=== PATIENT | female | born 1945 | race Caucasian/White ===

== ENCOUNTER → 2017-04-26 | Outpatient (CLI) | payer OTHER ==
[~2017-04-26] MED LIST: ACIDOPHILUS1 EAC4 PO; ALBUTEROL2.5 MG/31 INH; ALDACTONE25 MG PO; AMBIEN 10 MG TA10 MG PO; AMBIEN 5 MG TABL5 M1 PO; CAL-MAG COMPLE1 EACH PO; CALCIUM CITRAT250 MG PO; CARVEDILOL3.125 MG PO; CELLCEPT500 MG PO; CITRACAL-VIT D1 EAC2 PO; CLARITIN10 MG PO; COUMADIN 2 MG TA2 M1 PO; COUMADIN 2.5MG2.5 M1 PO; COUMADIN 4 MG TA4 M1 PO; COUMADIN7.5 MG PO; COZAAR 25 MG TA25 M2 PO; COZAAR 25 MG TA25 MG PO; DAYPRO600 MG PO; DOXYCYCLINE 10100 MG PO; DUONEB 2.5-0.5 M3 ML INH; ENOXAPARIN60 MG/0.1 SUBQ; EVISTA60 MG PO; FEOSOL325 M1 PO; HYDROCHLOROTHIA25 M2 PO; LEVAQUIN 500 M500 M1 PO; MEDROL4 MG PO; MEDROL8 MG PO; MUCINEX1200 MG PO; MUCINEX600 MG PO; NEXIUM40 MG PO; POTASSIUM20 PO; PULMICORT0.25 MG/3 INH; SYNTHROID50 MCG PO; TORSEMIDE20 MG PO; UNICOMPLEX M TA1 TA1 PO; VENTOLIN HFA 1818 GM INH; XANAX 0.5 MG0.5 M1 PO
--- NOTE | ~2017-04-26 | 2DMMODE ---
[facility] [place] [address] 2 D/M-MODE ECHOCARDIOGRAM Name: EUGENIO COOMBS Room #: REG [facility]#: [id number] Admission: 04/26/17 Attend Phys: Jovon Morales MD Discharge: Date of : 47 Date of Service: 04/26/17 1544 Report #: [id number] THIS REPORT FOR: //name// APPROVED REPORT Study performed: 04/26/2017 14:49:09 EXAM: Comprehensive 2D, Doppler, and color-flow Echocardiogram Patient Location: Echo lab Status: routine BSA: 1.61 HR: 110 bpm BP: 159/84 mmHg Rhythm: Tachycardia Other Information Study Quality: Adequate Indications Tachycardia 2D Dimensions RVDd: 27.68 mm LVEF(%): 59.63 (>50%) IVSd: 12.18 (7-11mm) LVOT Diam: 16.26 (18-24mm) LVDd: 35.46 mm PWd: 9.53 (7-11mm) Ascending Ao: 34.17 (22-36mm) LVDs: 24.49 (25-40mm) Aortic Root: 27.42 mm IVC: 16.00 mm Toure's LVEF: 59.63 % Volumes Left Atrial Volume (Systole) Single Plane 4CH: 31.17 mL Single Plane 2CH: 31.76 mL LA ESV Index: 22.00 mL/m2 Aortic Valve AoV Peak Rupesh.: 1.93 m/s AO Peak Gr.: 14.92 mmHg LVOT Max P.90 mmHg LVOT Max V: 1.57 m/s MICHAEL Vmax: 1.69 cm2 Mitral Valve E/A Ratio: 0.7 MV Decel. Time: 116.11 ms [facility] [place] [place] [address] 2 D/M-MODE ECHOCARDIOGRAM Name: EUGENIO COOMBS Room #: [facility]#: [id number] Admission: 04/26/17 Attend Phys: Jovon Morales MD Discharge: Date of : 47 Date of Service: 04/26/17 1544 Report #: [id number] E Max Rupesh.: 0.97 m/s MV A Rupesh.: 1.48 m/s MV PHT: 33.67 ms IVRT: 73.82 ms Pulmonary Valve PV Peak Rupesh.: 1.14 m/s PV Peak Gr.: 5.24 mmHg Tricuspid Valve TR Peak Rupesh.: 3.01 m/s RAP Estimate: 5.00 mmHg TR Peak Gr.: 36.24 mmHg PA Pressure: 41.00 mmHg Left Ventricle The left ventricle is normal size. There is normal left ventricular wall thickness. The left ventricular systolic function is normal. The left ventricular ejection fraction is within the normal range. LVEF is 60-65%. Transmitral Doppler flow pattern suggests impaired LV relaxation. Right Ventricle The right ventricle is normal size. The right ventricular systolic function is normal. Atria The left atrium size is normal. The right atrium size is normal. Aortic Valve The aortic valve is normal in structure. No aortic regurgitation is present. There is no aortic valvular stenosis. Mitral Valve Mitral valve leaflets are mildly thickened. There is no mitral valve regurgitation noted. No evidence of mitral valve stenosis. Tricuspid Valve The tricuspid valve is normal in structure. Mild to moderate tricuspid regurgitation. PAP is estimated at 41 mmHg. Pulmonic Valve Pulmonic valve is not well visualized. There is no pulmonic valvular regurgitation noted. Great Vessels The aortic root is normal in size. IVC is normal in size and collapses >50% with inspiration. [facility] [address] [place] [address] 2 D/M-MODE ECHOCARDIOGRAM Name: EUGENIO COOMBS [facility] [id number] Admission: 04/26/17 Attend Phys: Jovon Morales MD Discharge: Date of : 47 Date of Service: 04/26/17 1544 Report #: [id number] Pericardium There is no pericardial effusion. <Conclusion> The left ventricle is normal size. There is normal left ventricular wall thickness. The left ventricular systolic function is normal. Transmitral Doppler flow pattern suggests impaired LV relaxation. The right ventricle is normal size. The left atrium size is normal. The aortic valve is normal in structure. Mitral valve leaflets are mildly thickened. Mild to moderate tricuspid regurgitation. PAP is estimated at 41 mmHg. There is no pericardial effusion. <ELECTRONICALLY SIGNED> By: Jovon Morales MD 04/26/17 1544 1544 1544 Jovon Morales MD /INF
== END ==
LOC: CV 14:33
DX: I47.2 Ventricular tachycardia (principal); I07.1 Rheumatic tricuspid insufficiency

== ENCOUNTER → 2017-04-26 | Outpatient (CLI) | payer OTHER | LOC: RAD 17:19 | DX: R91.1 Solitary pulmonary nodule (principal); R59.0 Localized enlarged lymph nodes ==

== ENCOUNTER 2017-04-28 12:29 | Inpatient (IN) | payer OTHER ==
[~2017-04-28] VITALS: Ht 157.5 cm; Wt 58.3 kg
--- NOTE | ~2017-04-28 | P ---
[facility] [place] [address] PROCEDURE REPORT Name: EUGENIO COOMBS Room #: 360-P [facility] IN ..#: [id number] Admission: 04/28/17 Attend Phys: Raheel Ye MD Discharge: Date of : 47 Report #: [id number] THIS REPORT FOR: //name// CC: Raheel DELGADO DATE OF SERVICE: 04/28/2017 PROCEDURE: Fiberoptic bronchoscopy with bronchial washings and lavage of diffuse airways. INDICATION: Bronchiectasis with diffuse mucus plugging, uncertain diagnosis, failing outpatient management. ASA classification class 3. PROCEDURE NOTATION: After discussing risks and benefits of planned procedure with the patient, she desired to proceed. After obtaining informed consent, was brought to labor relations officer 3 where she was placed on continuous cardiopulmonary monitoring and supplemental oxygen. She was then given 4% lidocaine nebulized to anesthetize the upper respiratory tract. Once accomplished, she received conscious sedation, a total 4 mg of Versed and 25 mcg of fentanyl were titrated during the procedure to provide adequate sedation. Once accomplished, the bronchoscope was passed through an oral biteblock until vocal cords were visualized. Lidocaine 1% was instilled in the vocal cords to provide topical anesthesia. Vocal cords moved appropriately both before and after the procedure. Once accomplished, bronchoscope was passed in the trachea, 1% lidocaine was instilled in the tracheobronchial tree bilaterally to provide topical anesthesia. Once complete, airways were surveyed. FINDINGS: Mainstem, lobar, segmental and subsegmental bronchi were explored and appeared without any significant anatomic variation. There was extensive diffuse airway inflammation and thick white secretions. The white secretions were occluding completely some of the subsegmental airways. This was purged and aspirated as best I could with the bronchoscope and periodic 20 mL aliquots of saline infusions. The bronchoscope channel was occluded on multiple occasions, had to be removed and flushed to provide clearance of the channel to continue with airway clearance. One of these mucus plugs were sent in formalin for histopathology with some concern for aspergillosis. Bronchoscope was then reinserted on multiple occasions after being removed to continue with airway clearance. Significant lavage was obtained in the right lower lobe. The major airways were patent at the end of the procedure. The patient did require [facility] [address] [place] [address] PROCEDURE REPORT Name: EUGENIO COOMBS Room #: 360-P [facility] IN ..#: [id number] Admission: 04/28/17 Attend Phys: Raheel Ye MD Discharge: Date of : 47 Report #: [id number] increased FIO2 during the procedure, but otherwise tolerated the procedure. No noted other complications. <ELECTRONICALLY SIGNED> By: Yann Fang MD 05/03/17 1535 1704 0452 Yann Fang MD /nt
--- NOTE | ~2017-04-28 | S ---
[facility] [place] [address] SURGICAL PATH RPT PROCEDURE Name: EUGENIO CARVAJAL Room #: 360-P ADM IN M.R.#: [id number] Admission: 04/28/17 Date of : 47 Discharge: Report #: [id number] Path Case #: [id number] PATHOLOGY REPORT COLLECTION DATE: 04/29/2017 RECEIVED DATE: 04/29/2017 SUBMITTING PHYS: Raheel Ye M.D. OTHER PHYS: Dr. Tye Rojas SPECIMEN(S) RECEIVED: A.Peripheral smear * * * * * * * * * * * * FINAL DIAGNOSIS: Peripheral blood smear: - Moderate normocytic anemia, mild leukocytosis with neutrophilia and eosinophilia, and moderate thrombocytopenia (see comment). (CLW:barbara; 04/29/2017) COMMENT: Overall, the peripheral blood has moderate normocytic anemia, mild leukocytosis with neutrophilia and eosinophilia, and moderate thrombocytopenia. The etiology of the findings is unclear based entirely on slide review. Reactive and plasmacytoid lymphocytes are noted. There is a slight suggestion of red blood cell rouleaux. Possible causes of normocytic anemia include anemia of chronic disease, treated and/or compensated vitamin and mineral deficiency, acute blood loss, dilutional and primary bone marrow disorders. The leukocytosis is likely a reactive condition. Potential causes of neutrophilia include infections, drug reactions, smoking and primary bone marrow disorders. Potential causes of eosinophilia include drug reactions, allergic reactions, and infections. Causes of thrombocytopenia include immune and non-immune platelet destruction, drug and/or toxic exposures, dilutional and primary bone marrow disorders. Correlation with clinical history and additional laboratory data is recommended. (CLW:barbara; 04/29/2017) PATHOLOGIST: Ashley Mercado M.D. REPORT ELECTRONICALLY SIGNED BY: Ashley Mercado M.D. DATE/TIME: 04/29/2017 14:51 * * * * * * * * * * * * MICROSCOPIC DESCRIPTION: CBC Data (04/28/17): WBC 18,300 /uL, RBC 3.16, hemoglobin 9.8 g/dL, hematocrit 28.4%, MCV 89.8 fL, MCH 31.1 pg, MCHC 34.6 g/dL, [place] [address] SURGICAL PATH RPT PROCEDURE Name: EUGENIO CARVAJAL Room #: 360-P ADM IN [facility].#: [id number] Admission: 04/28/17 Date of : 47 Discharge: Report #: [id number] Path Case #: [id number] 14.9%, Platelet count 62,000 /uL. Manual white blood cell differential: segs 65%, bands, 2%, lymphs 6%, monos 8%, eos 18%, and atypical lymphos 1%. Peripheral Blood Smear: Cytomorphological examination of the Tripp's stained peripheral blood smear confirms the provided data. Red blood cells show moderate normocytic anemia with no significant anisopoikilocytosis. No schistocytes or microspherocytes are seen. There is a slight suggestion of possible rouleaux. White blood cells are mildly increased in number. They are predominantly segmented neutrophils and are without significant dyspoiesis or significant left shift. A moderate eosinophilia is identified. Lymphocytes are predominantly small, round, and mature appearing with condensed chromatin and scant cytoplasm with occasional reactive appearing lymphocytes and large granular lymphocytes. Occasional lymphocytes have plasmacytoid features. On scanning, no markedly atypical lymphoid cells are seen. Monocytes are mature. Platelets are moderately decreased in number and mainly normal in morphology with rare larger platelets noted. (CLW:barbara; 04/29/2017) GROSS PATHOLOGY: Received are three peripheral blood smears (one Tripp's stained and 2 unstained) all labeled Eugenio Carvajal. CLINICAL HISTORY: 72-year-old woman with anemia, thrombocytopenia and leukocytosis. Morphologic review of the peripheral blood smear is requested by the patient's physician. INITIAL CPT CODE(S): A; [place] Professional services performed by [facility] at [facility] [address], [place] [address] Technical services performed by [facility] at [address] [place] [address], [address], [place] [address]. [facility] [place] [address] PHONE: [phone] DIRECTOR: Randy Fitch M.D. * * * END OF REPORT * * *
--- NOTE | ~2017-04-28 | 2DMMODE ---
[facility] [place] [address] 2 D/M-MODE ECHOCARDIOGRAM Name: EUGENIO COOMBS Room #: 360-P ADM IN M.R.#: [id number] Admission: 04/28/17 Attend Phys: Raheel Ye MD Discharge: Date of : 47 Date of Service: 05/07/17 1201 Report #: [id number] THIS REPORT FOR: //name// APPROVED REPORT Study performed: 05/07/2017 10:42:38 EXAM: Comprehensive 2D, Doppler, and color-flow Echocardiogram Patient Location: Echo lab Room #: 360 Status: routine BSA: 1.62 HR: 81 bpm BP: 140/66 mmHg Other Information Study Quality: Good Indications Syncope Hypertension/HDD Tricuspid Valve TR Peak Rupesh.: 2.59 m/s TR Peak Gr.: 26.86 mmHg PA Pressure: 32.00 mmHg Left Ventricle The left ventricle is normal size. There is normal left ventricular wall thickness. The left ventricular systolic function is normal. The left ventricular ejection fraction is within the normal range. LVEF is 55-60%. Right Ventricle The right ventricle is normal size. The right ventricular systolic function is normal. Atria The left atrium size is normal. The right atrium size is normal. Aortic Valve The aortic valve is normal in structure. Trace aortic regurgitation. [facility] [address] [place] [address] 2 D/M-MODE ECHOCARDIOGRAM Name: EUGENIO COOMBS Room #: 360-P ADM IN M.R.#: [id number] Admission: 04/28/17 Attend Phys: Raheel Ye MD Discharge: Date of : 47 Date of Service: 05/07/17 1201 Report #: [id number] Mitral Valve The mitral valve is normal in structure. Trace to mild mitral regurgitation. Tricuspid Valve The tricuspid valve is normal in structure. There is mild to moderate tricuspid regurgitation. Estimated PAP 32 mmHg. There is mild pulmonary hypertension. Pulmonic Valve The pulmonary valve is normal in structure. Great Vessels The aortic root is normal in size. IVC is normal in size and collapses >50% with inspiration. Pericardium There is no pericardial effusion. <Conclusion> The left ventricle is normal size. There is normal left ventricular wall thickness. The left ventricular systolic function is normal. The right ventricle is normal size. The left atrium size is normal. Trace aortic regurgitation. Trace to mild mitral regurgitation. There is mild to moderate tricuspid regurgitation. Estimated PAP 32 mmHg. <ELECTRONICALLY SIGNED> By: Jovon Morales MD 05/07/17 120 120 1201 Jovon Morales MD /INF
--- NOTE | ~2017-04-28 | HC ---
[facility] [place] [address] CONSULTATION Name: EUGENIO COOMBS Room #: 360-P [facility] IN ..#: [id number] Admission: 04/28/17 Attend Phys: Raheel Ye MD Discharge: Date of : 47 Report #: [id number] THIS REPORT FOR: //name// CC: Raheel DELGADO DATE OF SERVICE: 04/28/2017 REASON FOR CONSULTATION: I was asked to evaluate concerning pneumonia and persistent cough. HISTORY OF PRESENT ILLNESS: The patient was a 72-year-old with over a 3-month history of cough and progressive shortness of breath. Onset was in January. Imaging studies in retrospect look like she had pneumonia at that time. She has been given several courses of antibiotics including azithromycin, Levaquin, doxycycline. She has been on corticosteroids, none of which have resolved her issues. She does have underlying hypertension, was on an NAHED inhibitor. This was discontinued as well without improvement. No prior history of pulmonary disease or pneumonia. Along with this, she has had no fever or night sweats or weight loss. She does have occasional chills. She has underlying fibromyalgia, which has been stable. She has hypothyroidism, on replacement. She had traveled to the [facility] this past summer. Family members who went with her, none of which became ill. She lives with her who has had no respiratory issues. She is a retired nurse as of 2011. No animal exposure, tuberculosis exposure, HIV risks other than the above. I do not have access to her previous workup other than a newer sedimentation rate was 132 and she had an eosinophilia. ALLERGIES: ERYTHROMYCIN, LEVAQUIN, HYDROCODONE and INTOLERANCE TO STEROID INHALERS. MEDICATIONS: As noted on her MAY, now being off both prednisone and antibiotics for about 3 weeks. PAST MEDICAL HISTORY: Anterior cervical fusion, hypertension, hypothyroidism, cataracts, fibromyalgia, irritable bowel, cholecystectomy, hysterectomy. FAMILY HISTORY: Noncontributory. SOCIAL HISTORY: Nonsmoker, no significant alcohol intake. REVIEW OF SYSTEMS: As noted above with no GI or complaints. No skin rashes or arthritis outside of her known fibromyalgia. PHYSICAL EXAMINATION: VITAL SIGNS: She is afebrile, hemodynamically stable. [facility] [address] [place] [address] CONSULTATION Name: EUGENIO COOMBS Room #: 360-P [facility] IN [facility].#: [id number] Admission: 04/28/17 Attend Phys: Raheel Ye MD Discharge: Date of : 47 Report #: [id number] GENERAL: She is alert and cooperative. She is on 5 L of oxygen per nasal cannula. HEENT: She had multiple petechiae to her eyes, conjunctiva and periorbital region. She underwent a bronchoscopy several hours previously. HEENT: Otherwise, unremarkable. During the examination, she had multiple episodes of nonproductive cough. NECK: Supple. No adenopathy. SKIN: Otherwise, unremarkable. LUNGS: Crackles heard in the posterior chest bilaterally. No consolidation and no rub. HEART: Regular, without murmur, gallop or rub. ABDOMEN: Soft, nontender, no hepatosplenomegaly or mass. EXTREMITIES: Unremarkable other than trace peripheral edema in the lower extremities. NEUROLOGIC: Nonfocal. LABORATORY STUDIES: Her troponin was 0.22. Electrocardiogram shows sinus tachycardia. TSH 4. CT scan of the chest showed a fairly extensive bronchiectasis and endobronchial plugging. She had a left upper lobe infiltrate and some increased mediastinal nodes. Hemoglobin 9.8, platelet count 62,000, white count 18.3, 65% segs, 2% bands, 6% lymphs, 8% monocytes, 18% eosinophils with a sodium of 128, potassium 3.4, bicarbonate 28, creatinine 1.8. IMPRESSION: A 72-year-old with a 3-month history of progressive cough and bilateral pulmonary infiltrates with bronchiectasis and mucus plugging with findings of anemia, thrombocytopenia, eosinophilia, hyponatremia and acute to just renal failure. It is noted that her sedimentation rate was 132 as an outpatient. I do not have access to her other outpatient workup. IMPRESSION: I am suspecting allergic lung disease versus vasculitis versus hypersensitivity versus malignancy. Primary infectious process seems less likely, although would be considered as a secondary process given her underlying bronchiectasis and mucus plugging. She has multiple allergies. Recommend further immune workup, infectious workup. Continue with broad-spectrum antibiotic therapy including vancomycin and Zosyn, pending bronchoscopy cultures. We will send cultures off for AFB, fungus, bacteria and have pathology assess for cytology looking for mucus casts and eosinophilia. I suspect the patient will require corticosteroids in this situation. It is possible she could have allergic bronchopulmonary aspergillosis, but we will await further studies. <ELECTRONICALLY SIGNED> By: Tye Kemp MD 04/29/17 1237 18 0304 Tye Kemp MD /nt
--- NOTE | ~2017-04-28 | HC ---
[facility] [place] [address] CONSULTATION Name: EUGENIO COOMBS Room #: 360-P ADM IN M.R.#: [id number] Admission: 04/28/17 Attend Phys: Raheel Ye MD Discharge: Date of : 47 Report #: [id number] THIS REPORT FOR: //name// CC: Raheel Hou MD REQUESTING PHYSICIAN: Raheel Ye MD REASON FOR CONSULTATION: Cytopenia. 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 It has always been slightly cheng. During the last several months, she is both coughing more and bringing up more phlegm because it does not clear. She has not really had any fever. She does have a slight headache from the coughing. No mouth sores. No new skin rash. No lymphadenopathy. She does have some chronic loose bowels from her irritable bowel. No blood in her urine or stool. No change in their function. She is not aware of any bleeding in them per se. She has not had any sweats, if I understand correctly. With regards to her blood counts, as far she knew, her counts were normal as of early March. Regarding recent antibiotic, she was recently on doxycycline before she came in. Her last colonoscopy was about 2015, they found out her diverticula. Her last EGD was the same time, she had a bit of evidence, I think, of reflux, but no Harkins's. She had lost about 8 pounds. PAST MEDICAL HISTORY: Notable for anterior cervical fusion in the past, hypertension, hypothyroidism. Note that on hypertension, she had been on Prinivil, they changed to losartan to see if this helps the cough. She also has cataracts in place, fibromyalgia, irritable bowel with some looser bowels, cholecystectomy, hysterectomy, oophorectomy because of ovarian cyst several years ago. 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 One of the times when she got sicker in the last several months, she was out picking pecNanoleaf in a recently mowed area. She is a nonsmoker, no alcohol, no street drugs. FAMILY HISTORY: Mother and father both had hypertension. Father lived to age 86. Mother also had osteoporosis, about age 90. One brother who is disgustingly healthy except he has a pacemaker. He used to be a runner. One daughter, a blood related daughter, who has IBS. There is another adopted child. [facility] [address] [place] [address] CONSULTATION Name: EUGENIO COOMBS Room #: 360-P [facility] IN M.R.#: [id number] Admission: 04/28/17 Attend Phys: Raheel Ye MD Discharge: Date of : 47 Report #: [id number] MEDICATIONS: Had been on and off prednisone and some antibiotics and also had been on various inhalers. CURRENT MEDICATIONS: Include acetylcysteine 800 mg respiratory therapy inhalation t.i.d., levothyroxine 75 mcg daily, Zosyn 2.25 q.6 hours, losartan 25 at bedtime, zolpidem 5 mg at bedtime, docusate 100 b.i.d., guaifenesin extended release 1200 b.i.d., vancomycin 1 gram daily, budesonide 0.5 mg respiratory therapy b.i.d., guaifenesin with codeine p.r.n., ipratropium and albuterol respiratory therapy q.4 hours, MiraLax 17 grams daily as needed, nitroglycerin p.r.n., Zofran p.r.n. LABORATORY DATA: Here included BUN of 20, creatinine of 1.7. Liver functions normal. Albumin low at 1.6, total protein 6.2. Iron 23, TIBC 136, percent saturation 17. Serum protein electrophoresis pending. White count 18.3 on admission, hemoglobin 9.8, MCV 89.8, platelets 62, today 50. Differential, 65% neutrophils, 2% bands, 6% lymphocytes, 8% monocytes, 18% eosinophils, 1% atypical lymphocytes. Absolute neutrophils 12,300. Peripheral smear review pending. TSH 4.047. Ferritin 555. Vitamin B12 is 6000. IgA pending. Respiratory viral panel pending. ANCA pending. UA showed squamous cells and bacteria. RADIOLOGIC STUDIES: Include a CT high resolution chest showing some mucus plugging and an indeterminate small noncalcified right lower lung nodule that will need followup. No significant interstitial lung disease, mild mediastinal adenopathy, spleen is normal size to my measurement, about 7.5 cm. Note, the patient also had a bronchoscopy, which showed some erythema and mucus plugging, which were sucked out. ASSESSMENT AND PLAN: 1. Thrombocytopenia. We will get outside lab from [facility] from the last 6 weeks. Also, await peripheral smear review. We will also check folic acid, immature platelet fraction, platelet antibody and serum soluble transferrin receptor assay. It could be related to doxycycline, which has now been stopped. No obvious bleeding. 2. Anemia. As above, we will check outside lab from [employer] [facility]. Iron panel somewhat indeterminate. We will check soluble transferrin receptor assay. We will await peripheral smear review. 3. Leukocytosis, most likely reactive. Note, high IgE would suggest reactive component. Await bronchoscopy to see if she might have aspergillosis. 4. Bronchiectasis and respiratory illness. Currently on Zosyn and vancomycin. We will defer to Pulmonary and Infectious Disease. 5. Hypertension, currently on losartan. 6. Hypothyroid. Defer replacement to others. 7. Irritable bowel. Defer replacement to others. 8. Fibromyalgia. No specific therapy at this point. [facility] [address] [place] [address] CONSULTATION Name: MALVIN,MARY Jaci Room #: 360-P [facility] IN ..#: [id number] Admission: 04/28/17 Attend Phys: Raheel Ye MD Discharge: Date of : 47 Report #: [id number] We will follow with you. <ELECTRONICALLY SIGNED> By: Bebeto Hairston MD 04/30/17 0742 0833 [id number] Bebeto Hairston MD /nt
--- NOTE | ~2017-04-28 | EKG ---
[address] [employer] [place] [address] ELECTROCARDIOGRAM REPORT Name: EUGENIO COOMBS Room #: 360-P ADM IN M.R.#: [id number] Admission: 04/28/17 Attend Phys: Raheel Ye MD Discharge: Date of : 47 Report #: [id number] THIS REPORT FOR: //name// [facility] ED Test Date: 2017-04-28 Test Time: 12:41:21 Pat Name: EUGENIO COOMBS Department: Room: 360 Gender: F [employer]let Company Member: CHRIS : 1945 Requested By: Torrey Easley Order Number: [id number] MD: Hoang Roach Measurements Intervals [place] Rate: 108 P: 72 RI: 145 QRS: 38 QRSD: 90 T: 70 QT: 331 QTc: 444 Interpretive Statements Sinus tachycardia Otherwise normal tracing No previous ECG available for comparison Electronically Signed On 04-28-2017 17:18:15 OPTOMECHANICAL ENGINEER by Hoang Roach [email or web address] <ELECTRONICALLY SIGNED> By: Hoang Roach MD, [facility] 04/28/17 1718 1241 1241 Hoang Roach MD, FACC /EPI
--- NOTE | ~2017-04-28 | HC ---
[facility] [place] [address] CONSULTATION Name: EUGENIO COOMBS Room #: 360-P [facility] IN .R.#: [id number] Admission: 04/28/17 Attend Phys: Raheel Ye MD Discharge: Date of : 47 Report #: [id number] THIS REPORT FOR: //name// CC: Raheel DELGADO Physician staff DATE OF SERVICE: 05/04/2017 NEPHROLOGY CONSULTATION ATTENDING PHYSICIAN: Dr. Ye. REASON FOR CONSULTATION: Systemic illness with renal involvement. HISTORY OF PRESENT ILLNESS: A 72-year-old patient, has been ill for greater than 3 months with primarily a respiratory illness, shortness of breath, cough, evidence of bronchiectasis, further complicated now by thrombocytopenia, renal insufficiency, heavy proteinuria and intermittent skin involvement. She has become progressively weak, hypoalbuminemic. Thrombocytopenia is responding to high doses of corticosteroids. PAST MEDICAL HISTORY: Otherwise, she has been reasonably stable. She has had a long history of hypertension treated with hydrochlorothiazide and lisinopril. In addition, she has had a history of fibromyalgia worked up intermittently without much success and generalized painful and somewhat moderately debilitating illness. PAST SURGICAL HISTORY: Includes previous hysterectomy, anterior cervical fusion and cholecystectomy. FAMILY HISTORY: No renal or connective tissue disease. SOCIAL HISTORY: No cigarettes or alcohol. REVIEW OF SYSTEMS: GENERAL: She has been feeling poorly. EYES: Her vision has been fine without problems there. ENT: Hearing okay, swallows okay. Denies mouth ulcers. ENDOCRINE: No diabetes or thyroid disease. RESPIRATORY: No shortness of breath, wheezing, pleuritic pain. CARDIAC: No chest pain, angina or palpitations. GASTROINTESTINAL: Appetite has been somewhat poor without diarrhea, bloody stool. GENITOURINARY: No dysuria or hematuria or renal stone disease. NEUROLOGIC: Generalized weakness without seizure, syncope or stroke. [facility] [address] [place] [address] CONSULTATION Name: EUGENIO COOMBS Room #: 360-P [facility] IN [facility]#: [id number] Admission: 04/28/17 Attend Phys: Raheel eY MD Discharge: Date of : 47 Report #: [id number] MUSCULOSKELETAL: No particular arthritis. PHYSICAL EXAMINATION: CARDIOVASCULAR: The patient is a somewhat chronically ill appearing patient. SKIN: Shows some petechiae and ecchymoses. SKELETAL: Well developed, well nourished, nonobese. HEENT: Extraocular movements are full. Vision is intact. Hearing is intact. Mucous membranes moist. Tongue, buccal mucosa benign. NECK: Supple, without lymphadenopathy. CHEST: Shows occasional rhonchi with slightly coarse breath sounds. HEART: Regular. ABDOMEN: Soft and nontender, without bruits, masses or organomegaly. EXTREMITIES: Show 2+ peripheral edema. NEUROLOGIC: Grossly intact. LABORATORY DATA: Hemoglobin is 9.1, platelets as low as 18,000, now up to 63. Sodium 135, potassium 3.7, chloride 102, bicarbonate 24, creatinine 1.6, BUN 41. Of note, she did have a positive platelet antibody, hemoglobin that is low at 9.1, very low serum complements C3 of 50, C4 less than 2, but CAMILLA was negative. The IgE level was elevated at 1229, p-ANCA, c-ANCA, atypical p-ANCA were all negative. GBM is pending. Urine chemistry showed greater than 6 g of proteinuria with a serum albumin of 1.9. ASSESSMENT AND PLAN: Acute nephritis. 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 This is in the setting of a systemic illness characterized by pulmonary findings with negative ANCA, GBM is pending and very low serum complement levels, immune thrombocytopenia on the background of long-term fibromyalgia. CAMILLA is negative. Renal biopsy would be helpful here. 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 We will be consulting with Rheumatology Service as well to come to a decision on treatment. 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 In any event as the platelets come up, I believe it will be safe to do a renal biopsy, keep her on the steroids and get to the bottom of the diagnosis here and treatment. <ELECTRONICALLY SIGNED> By: Dakota Norris MD 05/07/17 0823 1130 2316 Dakota Norris MD /nt
--- NOTE | ~2017-04-28 | CNG ---
[facility] [place] [address] CYTO-NONGYN REPORT PROCEDURE Name: EUGENIO CARVAJAL Room #: 360-P ADM IN M.R.#: [id number] Admission: 04/28/17 Date of : 47 Discharge: Report #: [id number] Path Case #: [id number] CYTOPATHOLOGY REPORT COLLECTION DATE: 04/28/2017 RECEIVED DATE: 04/29/2017 SUBMITTING PHYS: Dr. Yann Fang OTHER PHYS: Raheel Ye M.D. CLINICAL HISTORY: SOB; See also [id number] SPECIMEN(S) RECEIVED: A.Bronchoalveolar lavage, RLL * * * * * * * * * * * * FINAL DIAGNOSIS: A. RLL, Bronchoalveolar lavage: - No malignant cells identified. - Rare bronchial epithelial cells, alveolar macrophages, and squamous cells are present. - Acute and chronic inflammatory cells are present in a background of debris. PATHOLOGIST: Jaquelin Shannon M.D. REPORT ELECTRONICALLY SIGNED BY: Jaquelin Shannon M.D. DATE/TIME: 04/30/2017 13:26 * * * * * * * * * * * * GROSS PATHOLOGY: A. Bronchoalveolar lavage, RLL: The specimen is submitted unfixed, labeled "Eugenio Carvajal". Received by the Cytology Department is 20 mL of cloudy colorless fluid. One ThinPrep slide was prepared. (lg2.8.2017) STUDIO ARTIST(S): ZAK Waller(ASCP) INITIAL CPT CODE(S): A; 90767 Professional services performed by [facility] at [facility] [address] , [place] [address] Technical services performed by [facility] at [address] [place] [address], [address], [place] [address]. [facility] [address] [place] [address], [address] [facility] [address] [place] [address] CYTO-NONGYN REPORT PROCEDURE Name: EUGENIO CARVAJAL Room #: 360-P ADM IN .R.#: [id number] Admission: 04/28/17 Date of : 47 Discharge: Report #: [id number] Path Case #: [id number] SHANELL Lorenzo [address] PHONE: [phone] DIRECTOR: Randy Fitch M.D. * * * END OF REPORT * * *
--- NOTE | ~2017-04-28 | S ---
[facility] [place] [address] SURGICAL PATH RPT PROCEDURE Name: EUGENIO COOMBS Room #: 360-P ADM IN M.R.#: [id number] Admission: 04/28/17 Date of : 47 Discharge: Report #: [id number] Path Case #: [id number] PATHOLOGY REPORT COLLECTION DATE: 05/05/2017 RECEIVED DATE: 05/05/2017 SUBMITTING PHYS: Dr. Dakota Norris OTHER PHYS: Baudilio Sharma Dr. SPECIMEN(S) RECEIVED: A.Left renal biopsy * * * * * * * * * * * * FINAL DIAGNOSIS: Kidney, left kidney, needle core biopsy: - Membranous glomerulopathy, electron microscopy stage II. - Phospholipase A2 receptor stain is negative, see attached scanned image for details. - Acute tubular injury. Please see next page for scanned image of report submitted by [facility] consultant electronics pathologist, Solo Sanchez M.D. (IUV:amj; d/t: 05/07/2017) PATHOLOGIST: Jaquelin Shannon M.D. REPORT ELECTRONICALLY SIGNED BY: Jaquelin Shannon M.D. DATE/TIME: 05/07/2017 15:16 * * * * * * * * * * * * GROSS PATHOLOGY: Received are two containers each labeled with "Eugenio Coombs and left kidney biopsy". Container #1 (10% neutral buffered formalin) consist of a srinivasan soft needle core 1.0 cm in length and up to 0.1 cm in diameter. Container #2 (David's transport medium) consists of two srinivasan soft needle cores 1.2 cm and 1.1 cm in length and up to 0.1 cm in diameter. Both containers are sent for ancillary studies. (SWS; 05/05/2017) CLINICAL HISTORY: Glomerulonephritis INITIAL CPT CODE(S): A; 70059 Professional and Technical services performed by [employer], [address], [place] [address]. [address] [address] SURGICAL PATH RPT PROCEDURE Name: EUGENIO COOMBS Room #: 360-P ADM IN ..#: [id number] Admission: 04/28/17 Date of : 47 Discharge: Report #: [id number] Path Case #: [id number] [facility] [address] [place] [address] PHONE: [phone] DIRECTOR: Randy Fitch M.D. * * * END OF REPORT * * *
--- NOTE | ~2017-04-28 | EKG ---
[address] [place] [address] ELECTROCARDIOGRAM REPORT Name: EUGENIO COOMBS Room #: 360-P ADM IN M.R.#: [id number] Admission: 04/28/17 Attend Phys: Raheel Ye MD Discharge: Date of : 47 Report #: [id number] THIS REPORT FOR: //name// [facility] Test Date: 2017-04-29 Test Time: 09:51:22 Pat Name: EUGENIO COOMBS Department: Room: 360 P Gender: F Stator Plate Washer: Adi HARTMAN : 1945 Requested By: Jovon Morales Order Number: [id number] MD: Hoang Roach Measurements Intervals [place] Rate: 96 P: 58 ID: 137 QRS: 37 QRSD: 92 T: 57 QT: 368 QTc: 465 Interpretive Statements Sinus rhythm Normal tracing Compared to ECG 04/28/2017 12:41:21 Sinus tachycardia no longer present Electronically Signed On 04-29-2017 16:58:58 INDUSTRIAL HEALTH AND SAFETY PROFESSOR by Hoang Roach [email or web address] <ELECTRONICALLY SIGNED> By: Hoang Roach MD, [facility] 04/29/17 1658 D: 02950 0 Hoang Roach MD, [facility] /EPI
--- NOTE | ~2017-04-28 | EKG ---
[address] [address] ELECTROCARDIOGRAM REPORT Name: EUGENIO COOMBS Room #: 360-P ADM IN M.R.#: [id number] Admission: 04/28/17 Attend Phys: Raheel Ye MD Discharge: Date of : 47 Report #: [id number] THIS REPORT FOR: //name// [facility] [place] [facility] Test Date: 2017-05-06 Test Time: 09:27:27 Pat Name: EUGENIO COOMBS Department: Room: 360 P Gender: F Installation Technician: : 1945 Requested By: Raheel Ye Order Number: [id number] MD: Abner De La Garza Measurements Intervals [place] Rate: 66 P: 66 [place]: 126 QRS: 52 QRSD: 91 T: 77 QT: 404 QTc: 424 Interpretive Statements Sinus rhythm Compared to ECG 04/29/2017 09:51:22 No significant changes Electronically Signed On 05-06-2017 16:21:04 PARTY PLAN SALES UNIT ADVISOR by Abner De La Garza [email or web address] <ELECTRONICALLY SIGNED> By: Abner De La Garza MD 05/06/17 1621 0927 6 Abner De La Garza MD /[place]
--- NOTE | ~2017-04-28 | S ---
[facility] [place] [address] SURGICAL PATH RPT PROCEDURE Name: EUGENIO COOMBS Room #: 360-P ADM IN M.R.#: [id number] Admission: 04/28/17 Date of : 47 Discharge: Report #: [id number] Path Case #: [id number] PATHOLOGY REPORT COLLECTION DATE: 05/03/2017 RECEIVED DATE: 05/03/2017 SUBMITTING PHYS: Dr. Raghav Briseno OTHER PHYS: Baudilio Matute Dr., Dr., Dr., Dr. SPECIMEN(S) RECEIVED: A.Bone marrow, biopsy B.Bone marrow, clot and/or particle prep C.Bone marrow, aspirate smears D.Peripheral smear * * * * * * * * * * * * FINAL DIAGNOSIS: Bone marrow aspirate, biopsy, cell clot and peripheral blood: - Peripheral blood with moderate to severe normocytic anemia, mild to moderate leukocytosis/neutrophilia with mild left shift and severe thrombocytopenia. - Hypercellular bone marrow with trilineage hematopoiesis, mild dyspoiesis including mildly increased and focally dyspoietic megakaryocytes, eosinophilia and no evidence of lymphoma or acute leukemia. (See comment) COMMENT: Overall the bone marrow is hypercellular for the patient's age with trilineage hematopoiesis, mild dyspoiesis including mildly increased and focally dyspoietic megakaryocytes, eosinophilia and no evidence of lymphoma or acute leukemia. The overall findings may represent a reactive condition. The dyspoiesis is mild and while it could possibly represent a low grade myelodysplastic syndrome, it does not meet the morphologic criteria for myelodysplasia. Correlation with clinical history, additional laboratory data and cytogenetics is recommended. (CLW:db; 05/04/2017) PATHOLOGIST: Ashley Mercado M.D. REPORT ELECTRONICALLY SIGNED BY: Ashley Mercado M.D. DATE/TIME: 05/05/2017 13:[address] [address] SURGICAL PATH RPT PROCEDURE Name: EUGENIO COOMBS Room #: 360-[facility] IN [facility]#: [id number] Admission: 04/28/17 Date of : 47 Discharge: Report #: [id number] Path Case #: [id number] * * * * * * * * * * * * MICROSCOPIC DESCRIPTION: CBC Data (05/02/17): WBC 17,700 /uL, RBC 2.68, hemoglobin 8.4 g/dL, hematocrit 23.9%, MCV 89.0 fL, MCH 31.1 pg, MCHC 35.0 g/dL, RDW 14.9%, and platelet count 31,000 /uL. Automated white blood cell differential: segs 83.1%, lymphs 8.8%, monos 7.8%, eos 0.1%, and basos 0.2% with 1% metamyelocytes and 3% myelocytes. Peripheral Blood Smear: Cytomorphological examination of the Tripp's stained peripheral blood smear confirms the provided data. Red blood cells show moderate to severe normocytic anemia with mild anisocytosis. No significant poikilocytosis is identified. No schistocytes or microspherocytes are seen. White blood cells are mild to moderately increased in number. They are predominantly segmented neutrophils and are without significant dyspoiesis. Occasional hypersegmented neutrophils are noted. There is a mild left shift with rare myelocytes and metamyelocytes noted on scanning. No blasts or Mj rods are seen. Lymphocytes are predominantly small, round and mature appearing with condensed chromatin and scant cytoplasm with admixed large granular lymphocytes. On scanning, no markedly atypical lymphoid cells are seen. Monocytes are mature. Platelets are markedly decreased in number and mainly normal in morphology with rare larger platelets noted. Aspirate Smears: Cytomorphological examination of the Tripp's stained aspirate smears shows hypercellular spicules present. The overall cellularity is approximately 70%. The myeloid to erythroid ratio is 3:1. Full myeloid maturation is identified and is without significant dyspoiesis. An eosinophilia is noted. Erythroid maturation is mildly dyserythropoietic with irregular nuclear contours and basophilic stippling. In a 500 cell differential, there are less than 1% blasts (no Mj rods are seen), 69% more differentiated myeloids, 22% erythroid precursors, and 9% lymphocytes. Megakaryocytes are proportional in number and both normal and abnormal in morphology with variable sizes and nuclear abnormalities. No lymphoid aggregates or markedly atypical lymphoid cells are seen. Plasma cells are without atypia. Iron stain of the aspirate smear shows trace-1/4+ iron positivity with spicules present. No ringed sideroblasts are identified. Core Biopsy and Cell Clot: The decalcified bone marrow core biopsy is adequate. The bone marrow is hypercellular with an overall cellularity of approximately 60%. The myeloid to erythroid ratio is 2-3:1. Myeloid maturation is without significant dyspoiesis. Again, an eosinophilia is noted. Erythroid maturation is mildly dyserythropoietic. Megakaryocytes are normal to mildly increased in number and both normal and abnormal in morphology. No lymphoid aggregates or markedly atypical lymphoid cells are seen. Bony trabeculae and blood vessels are unremarkable. [facility] [address] [place] [address] SURGICAL PATH RPT PROCEDURE Name: EUGENIO COOMBS Room #: 360-P [facility] IN ..#: [id number] Admission: 04/28/17 Date of : 47 Discharge: Report #: [id number] Path Case #: [id number] The cell clot has spicules present that are similar in cellularity and differential morphology as previously described. Again, there is an eosinophilia. Iron stain of the cell clot (Block B1, B2, B3, B4 and B5) show 2/4+ iron positivity with spicules present. Flow Cytometry: Flow cytometric immunophenotypic analysis was performed at [facility]. The diagnosis is "no diagnostic immunophenotypic abnormalities detected." There are 5.3% lymphocytes. Of the lymphocytes, there are 69% T-cells with a CD4/CD8 ratio of 2.4 and no aberrant T-cell antigen expression and 17% polyclonal mature B-cells (kappa lambda ratio of 1.1). There are 0.3% CD34 positive cells (blasts) and precursor B cells are not detected. No immunophenotypic evidence of a lymphoproliferative disorder, acute leukemia, increase in blasts, or increase in plasma cells is identified. Please see separate flow cytometry report from [facility] ([id number]). Cytogenetics: Cytogenetic chromosomal analysis is pending at [facility] ([id number]). GROSS PATHOLOGY: A. Received in formalin labeled "Eugenio Coombs, BM biopsy," are 3 needle cores of srinivasan bone, ranging from 0.4 to 0.8 cm in length and 0.2 cm in diameter. The specimen is submitted entirely in cassette A1, following decalcification. B. Received in formalin labeled "Eugenio Coombs, BM aspirate," is blood coagulum, measuring 12.5 x 2.3 x 0.5 cm in aggregate dimensions. The specimen is submitted entirely in cassettes B1-B5. (SDY; 05/03/2017) CLINICAL HISTORY: Anemia, thrombocytopenia 72 year old woman with leukocytosis, anemia and thrombocytopenia. INITIAL CPT CODE(S): A; 45061, 53373 B; 61655, 80135, 55209, 59522, 41291, 68502 C; 58860, 71203 D; 51513 Professional services performed by [facility] at [address], [place] [address] Technical services performed by [facility] at [address] [place] [address], [place] [address]. [facility] [address] [address] SURGICAL PATH RPT PROCEDURE Name: EUGENIO COOMBS Room #: 360-P [facility] IN [facility].#: [id number] Admission: 04/28/17 Date of : 47 Discharge: Report #: [id number] Path Case #: [id number] [facility] [address] [address] PHONE: [phone] DIRECTOR: Randy Fitch M.D. * * * END OF REPORT * * *
--- NOTE | ~2017-04-28 | HC ---
[facility] [place] [address] CONSULTATION Name: EUGENIO COOMBS Room #: 360-P [facility] IN M.R.#: [id number] Admission: 04/28/17 Attend Phys: Raheel Ye MD Discharge: Date of : 47 Report #: [id number] THIS REPORT FOR: //name// CC: Raheel Rojas DO DATE OF SERVICE: 04/28/2017 REFERRING PROVIDER: Raheel eY MD REASON FOR CONSULTATION: Shortness of breath, bronchiectasis. CHIEF COMPLAINT: Dyspnea. HISTORY OF PRESENT ILLNESS: The patient is a pleasant 72-year-old woman known to me and seen on Wednesday in our office and follows up with Dr. Mao Madera of our group for several months trying to evaluate the cause of ongoing cough and shortness of breath, which started about 4 months ago. The patient had recently traveled to the [facility] prior to that. 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 The patient has had ongoing significant cough, unable to produce any sputum. Denies any fevers, chills or sweats and ongoing wheezing. The patient has been tried on systemic steroids, but developed significant carpopedal spasm associated with this. Also had similar problems with inhalers due to intolerance due to tachycardia, recently seen by Cardiology for further evaluation and subsequently brought to my attention on Wednesday. The patient had significant respiratory problems and nothing from a cardiac source. At that time, when I had seen her, she was on doxycycline and has previously been on what sounds like azithromycin and Levaquin without any improvement. Then had some improvement with nebulized bronchodilators, had also some improvement with the use of Nexium for reflux complaints. At that time, I had suggested a followup CT scan of the chest because of some findings of pulmonary nodules, AP window and mediastinal lymph nodes and eosinophilia that had been noted on prior laboratories. The patient also has a restrictive lung process. The patient was not improving, called our office today and obviously was doing very poorly and sent to the Emergency Room for admission. The patient was seen there. Subsequently underwent bronchoscopy this afternoon with extensive thick white secretions emanating from airway and including many of the lower respiratory tracts. Emergency Room laboratories had also shown eosinophilia, anemia and thrombocytopenia. The patient subsequently was admitted for further management. OUTPATIENT MEDICATIONS: Include azithromycin, hydrocodone, Levaquin, morphine, nonsteroidals, oxycodone and ceftriaxone. [address] [address] CONSULTATION Name: EUGENIO COOMBS Room #: 360-P [facility] IN [facility].#: [id number] Admission: 04/28/17 Attend Phys: Raheel Ye MD Discharge: Date of : 47 Report #: [id number] PAST MEDICAL HISTORY: 1. History of fibromyalgia. 2. History of traumatic brain injury. 3. Hypertension. 4. Hyperlipidemia. 5. Hypothyroidism. 6. Irritable bowel syndrome. PAST SURGICAL HISTORY: Includes cervical laminectomy, cholecystectomy and hysterectomy. SOCIAL HISTORY: The patient is a never smoker, no alcohol consumption. Lives with family. FAMILY HISTORY: Significant for cerebrovascular disease in both mother and father. REVIEW OF SYSTEMS: CONSTITUTIONAL: No fevers, chills or sweats; just some general malaise; diminished appetite. ENT: Some occasional nasal congestion. CARDIOVASCULAR: No chest pain, some palpitations noted, and lower extremity edema. GASTROINTESTINAL: Recent reflux, improved with Nexium. GENITOURINARY: No dysuria, no frequency. INTEGUMENT: Denies any new rash. MUSCULOSKELETAL: No joint pains or swelling. Rest 12-point review of systems normal or as described in HPI. PHYSICAL EXAMINATION: VITAL SIGNS: Afebrile, pulse 100-110, respiratory rate 20, blood pressure 120/71, oxygen saturation 97%. GENERAL: This is a pleasant, but debilitated elderly woman. ENT: Clear oropharynx. No thrush. NECK: Supple, no lymphadenopathy. LUNGS: Diminished with diffuse expiratory wheezes. CARDIOVASCULAR: Heart was tachycardic, but regular. No murmurs noted. ABDOMEN: Soft. Bowel sounds positive. EXTREMITIES: Only trace edema. INTEGUMENT: Without rash. LABORATORY DATA: Troponin 0.1. In the Emergency Department, white blood cell count 18,000; hemoglobin 9.8; hematocrit 28; platelet count 62 with 18% eosinophils. Sodium 128, potassium 3.4, chloride 94, bicarbonate 27, BUN 22, creatinine 1.8, glucose 117. Chest x-ray with diffuse bronchiectasis findings, [address] [address] CONSULTATION Name: EUGENIO COOMBS Room #: 360-P [facility] IN M.R.#: [id number] Admission: 04/28/17 Attend Phys: Raheel Ye MD Discharge: Date of : 47 Report #: [id number] minimal pleural effusions. IMPRESSION: 1. Bronchiectasis. 2. Diffuse airway secretions consistent with infectious process or a hypersensitivity or autoimmune process including allergic bronchopulmonary aspergillosis. 3. Anemia. 4. Thrombocytopenia. 5. History of lymphadenopathy. The patient also reports possible history of axillary adenopathy noted on mammography in the recent past. SUGGESTIONS: 1. Infectious Disease consultation regarding antibiotic choices given multiple allergies and failure of outpatient management. 2. Await bronchoscopy culture results. 3. The patient may need sampling of lymphadenopathy and would consider lymphoma in the differential diagnosis and other immune system dysfunctions. 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 6. Cardiology consultation. 7. Hematology consultation. 8. We will continue to follow. <ELECTRONICALLY SIGNED> By: Yann Fang MD 05/03/17 1535 03 0908 Yann Fang MD /nt
--- NOTE | ~2017-04-28 | S ---
[facility] [address] SURGICAL PATH RPT PROCEDURE Name: EUGENIO COOMBS Room #: 360-P ADM IN M.R.#: [id number] Admission: 04/28/17 Date of : 47 Discharge: Report #: [id number] Path Case #: [id number] PATHOLOGY REPORT COLLECTION DATE: 04/30/2017 RECEIVED DATE: 04/30/2017 SUBMITTING PHYS: Dr. Yann Fang OTHER PHYS: Baudilio Sharma Dr. SPECIMEN(S) RECEIVED: A.Mucus plug material from right lower lobe * * * * * * * * * * * * FINAL DIAGNOSIS: Tissue designated as, "mucus plug material from right lower lobe": - Consistent with a mucus plug. - No definite fungal elements identified (please see comment). COMMENT: A well-controlled [facility] fungal special stain is performed on block A1 and it shows no definite yeast or fungal elements. (IUV:mml; 05/03/2017) PATHOLOGIST: Jaquelin Shannon M.D. REPORT ELECTRONICALLY SIGNED BY: Jaquelin Shannon M.D. DATE/TIME: 05/03/2017 15:05 * * * * * * * * * * * * GROSS PATHOLOGY: The specimen is received in formalin labeled "Eugenio Coombs," and additionally labeled on the requisition as, "mucus plug material from right lower lobe". Received is a moderate amount of cloudy mucoid material measuring 2.0 x 1.3 x 0.3 cm in aggregate dimensions. The specimen is filtered and entirely submitted in cassette A1. A special stain for fungal organisms is ordered. (CAA; 04/30/2017) CLINICAL HISTORY: SOB, some concern for eosinophilic bronchitis or aspergillosis INITIAL CPT CODE(S): A; 67397, 24321 Professional services performed by [facility] at [facility] [address] [place] [address] SURGICAL PATH RPT PROCEDURE Name: EUGENIO COOMBS Room #: 360-P ADM IN [facility].#: [id number] Admission: 04/28/17 Date of : 47 Discharge: Report #: [id number] Path Case #: [id number] [address] [facility] , [place] [address] [facility] by [facility] at [address] [place] [address], [facility] [address], [place] [address]. [facility] [address] [place] [address] PHONE: [phone] DIRECTOR: Randy Fitch M.D. * * * END OF REPORT * * *
[2017-04-28 12:30] VITALS: BP 137/73
[2017-04-28 12:58] LABS: HEMATOCRIT 28.4 % (37.0-47.0); HEMOGLOBIN 9.8 gm/dL (12.0-15.0); MCH 31.1 pg (26.0-34.0); MCHC 34.6 g/dL (28.0-37.0); MCV 89.8 fL (80.0-100.0); RBC 3.16 mil/uL (4.20-5.00); RDW 14.9 % (10.5-14.5); WBC 18.3 thou/uL (4.0-11.0)
[2017-04-28 13:07] LABS: CALCIUM 8.8 mg/dL (8.5-10.1); CREATININE 1.8 mg/dL (0.6-1.0); POTASSIUM 3.4 mmol/L (3.5-5.1)
[2017-04-28 13:16] LABS: TROPONIN-I 0.1 ng/mL (<0.06)
[2017-04-28 13:18] VITALS: BP 137/73
[2017-04-28 13:47] LABS: ABSOLUTE NEUTROPHILS 12.3 thou/uL (1.4-8.2); ATYPICAL LYMPHS 1 %
[2017-04-28 13:48] LABS: ANISOCYTOSIS 1+
[2017-04-28 14:00] LABS: PLATELET COUNT 62 thou/uL (150-400)
[2017-04-28 15:30] LABS: TSH 4.047 uIU/mL (0.358-3.740)
[2017-04-28] MEDS ORDERED: VENTOLIN HFA 1818 GM INH (16:43)
[2017-04-28] MEDS ORDERED: PULMICORT0.25 MG/3 INH (16:43)
[2017-04-28] MEDS ORDERED: CAL-MAG COMPLE1 EACH PO (16:44)
[2017-04-28] MEDS ORDERED: CITRACAL-VIT D1 EAC2 PO (16:45)
[2017-04-28] MEDS ORDERED: DAYPRO600 MG PO (16:46)
[2017-04-28] MEDS ORDERED: NEXIUM40 MG PO (16:47)
[2017-04-28] MEDS ORDERED: MUCINEX1200 MG PO (16:47)
[2017-04-28] MEDS ORDERED: DOXYCYCLINE 10100 MG PO (16:47)
[2017-04-28] MEDS ORDERED: DUONEB 2.5-0.5 M3 ML INH ×2 (16:48→16:49)
[2017-04-28] MEDS ORDERED: HYDROCHLOROTHIA25 M2 PO (16:48)
[2017-04-28] MEDS ORDERED: SYNTHROID50 MCG PO (16:49)
[2017-04-28] MEDS ORDERED: CLARITIN10 MG PO (16:49)
[2017-04-28] MEDS ORDERED: COZAAR 25 MG TA25 M2 PO (16:50)
[2017-04-28] MEDS ORDERED: UNICOMPLEX M TA1 TA1 PO (16:50)
[2017-04-28] MEDS ORDERED: EVISTA60 MG PO (16:51)
[2017-04-28] MEDS ORDERED: AMBIEN 5 MG TABL5 M1 PO (16:51)
[2017-04-28 16:58] VITALS: BP 116/51
[2017-04-28 19:21] VITALS: BP 120/71
[2017-04-28 23:35] LABS: URINE BILIRUBIN NEGATIVE (Negative); URINE BLOOD 2+ (Negative); URINE CLARITY CLEAR; URINE COLOR YELLOW; URINE GLUCOSE-RANDOM* NEGATIVE (Negative); URINE KETONES NEGATIVE (Negative); URINE NITRITE-REFLEX NEGATIVE (Negative); URINE PROTEIN (DIPSTICK) 2+ (Negative); URINE UROBILINOGEN 0.2 E.U./dl (0.2-1.0)
[2017-04-28 23:43] LABS: URINE LEUKOCYTES-REFLEX TRACE (Negative)
[2017-04-29 00:03] LABS: HYALINE CASTS 0-3 Few /LPF (None Seen); SQUAMOUS 4-10 Moderate /LPF (0-3); URINE RBC 3-10 Few /HPF (0-2); URINE WBC-REFLEX 6-15 Few /HPF (0-5)
[2017-04-29 00:04] LABS: CRYSTALS None Seen /LPF (None Seen)
[2017-04-29 00:38] LABS: WBC 16.6 thou/uL (4.0-11.0)
[2017-04-29 00:40] LABS: HEMATOCRIT 26.5 % (37.0-47.0); HEMOGLOBIN 9.2 gm/dL (12.0-15.0); MCH 31.2 pg (26.0-34.0); MCHC 34.9 g/dL (28.0-37.0); MCV 89.5 fL (80.0-100.0); RBC 2.96 mil/uL (4.20-5.00); RDW 15.3 % (10.5-14.5)
[2017-04-29 00:55] LABS: CHOLESTEROL 111 mg/dL (<200); HDL CHOLESTEROL 44 mg/dL (>40); LDL CHOLESTEROL 53 mg/dL (<100); TC:HDL 2.5 Ratio (Not establshd); TRIGLYCERIDE 71 mg/dL (<150); VLDL 14 mg/dL (<40)
[2017-04-29 00:56] LABS: % SATURATION 17 % (20-39); IRON 23 ug/dL (50-170); TIBC 136 ug/dL (250-450)
[2017-04-29 00:57] LABS: ALBUMIN 1.6 g/dL (3.4-5.0); CALCIUM 8.4 mg/dL (8.5-10.1); CREATININE 1.7 mg/dL (0.6-1.0); POTASSIUM 3.6 mmol/L (3.5-5.1); TOTAL BILIRUBIN 0.7 mg/dL (<0.1-1.0); TOTAL PROTEIN 6.2 g/dL (6.4-8.2)
[2017-04-29 00:58] LABS: SERUM ASSESSMENT Clear
[2017-04-29 03:51] VITALS: BP 99/59
[2017-04-29 08:34] VITALS: BP 122/65
[2017-04-29 13:13] LABS: IgA 635 mg/dL (64-422); IgM 35 mg/dL (26-217)
[2017-04-29 13:24] VITALS: BP 135/72
[2017-04-29 19:07] LABS: IgG 1598 mg/dL (700-1600)
[2017-04-29 20:00] VITALS: BP 133/76
[2017-04-30 05:00] VITALS: BP 134/75
[2017-04-30 06:42] LABS: WBC 15.5 thou/uL (4.0-11.0)
[2017-04-30 06:44] LABS: ABSOLUTE NEUTROPHILS 13.5 thou/uL (1.4-8.2); BASOPHILS 0.7 % (0.0-2.0); EOSINOPHILS 0.6 % (0.0-3.0); HEMATOCRIT 27.6 % (37.0-47.0); HEMOGLOBIN 9.5 gm/dL (12.0-15.0); LYMPHOCYTES 7.2 % (24.0-44.0); MCHC 34.4 g/dL (28.0-37.0); MCV 90.2 fL (80.0-100.0); MONOCYTES 4.2 % (1.0-8.0); POLYS 87.3 % (36.0-66.0); RBC 3.06 mil/uL (4.20-5.00); RDW 15.1 % (10.5-14.5)
[2017-04-30 06:46] LABS: APTT 26.8 Seconds (24.5-32.8); PROTIME 10.7 Seconds (9.3-11.4)
[2017-04-30 06:50] LABS: CALCIUM 7.9 mg/dL (8.5-10.1); CREATININE 1.6 mg/dL (0.6-1.0); POTASSIUM 3.8 mmol/L (3.5-5.1)
[2017-04-30 07:20] VITALS: BP 126/78
[2017-04-30 08:39] LABS: PLATELET COUNT 18 thou/uL (150-400)
[2017-04-30 11:50] VITALS: BP 120/71
[2017-04-30 15:16] LABS: HEMATOCRIT 26.3 % (37.0-47.0); RDW 15.3 % (10.5-14.5)
[2017-04-30 15:18] LABS: MCH 30.9 pg (26.0-34.0); MCHC 34.4 g/dL (28.0-37.0); MCV 89.7 fL (80.0-100.0); RBC 2.93 mil/uL (4.20-5.00); WBC 21.7 thou/uL (4.0-11.0)
[2017-04-30 16:10] VITALS: BP 151/91
[2017-04-30 19:20] VITALS: BP 135/80
[2017-05-01 00:32] VITALS: BP 122/62; BP 138/77
[2017-05-01 04:38] LABS: HEMATOCRIT 22.5 % (37.0-47.0); HEMOGLOBIN 7.8 gm/dL (12.0-15.0); MCH 31.3 pg (26.0-34.0); MCHC 34.8 g/dL (28.0-37.0); RBC 2.5 mil/uL (4.20-5.00); RDW 15.3 % (10.5-14.5); WBC 20.3 thou/uL (4.0-11.0)
[2017-05-01 04:55] VITALS: BP 131/80
[2017-05-01 07:56] VITALS: BP 149/81
[2017-05-01 11:18] VITALS: BP 142/84
[2017-05-01 15:00] LABS: URINE CREATININE-RANDOM* 53.1 mg/dL; URINE PROTEIN-RANDOM* 332.3 mg/dL (<11.9)
[2017-05-01 15:49] VITALS: BP 135/72
[2017-05-01 16:10] LABS: HEMATOCRIT 24.8 % (37.0-47.0)
[2017-05-01 16:12] LABS: HEMOGLOBIN 8.7 gm/dL (12.0-15.0); MCH 31.2 pg (26.0-34.0); MCHC 34.9 g/dL (28.0-37.0); MCV 89.5 fL (80.0-100.0); PLATELET COUNT 45 thou/uL (150-400); RBC 2.78 mil/uL (4.20-5.00); RDW 15.5 % (10.5-14.5); WBC 21.6 thou/uL (4.0-11.0)
[2017-05-01 17:11] LABS: HISTOPLASMA MYCELIAL-ID Negative (Negative)
[2017-05-01 17:55] LABS: ABSOLUTE NEUTROPHILS 18.8 thou/uL (1.4-8.2); METAMYELOCYTES 2 %
[2017-05-01 17:56] LABS: ANISOCYTOSIS 1+; POLYCHROMASIA OCCASIONAL
[2017-05-01 19:50] VITALS: BP 149/86
[2017-05-02 03:50] VITALS: BP 123/76
[2017-05-02 05:36] LABS: ABSOLUTE NEUTROPHILS 14.7 thou/uL (1.4-8.2); BASOPHILS 0.2 % (0.0-2.0); PLATELET COUNT 31 thou/uL (150-400)
[2017-05-02 05:40] LABS: ABSOLUTE RETIC COUNT 0.0467 10^6/uL; EOSINOPHILS 0.1 % (0.0-3.0); HEMATOCRIT 23.9 % (37.0-47.0); HEMOGLOBIN 8.4 gm/dL (12.0-15.0); LYMPHOCYTES 8.8 % (24.0-44.0); MCH 31.1 pg (26.0-34.0); MONOCYTES 7.8 % (1.0-8.0); OBSERVED RETIC COUNT 1.74 % (0.6-2.6); POLYS 83.1 % (36.0-66.0); RBC 2.68 mil/uL (4.20-5.00); RDW 14.9 % (10.5-14.5); WBC 17.7 thou/uL (4.0-11.0)
[2017-05-02 05:51] LABS: ALBUMIN 1.8 g/dL (3.4-5.0); CALCIUM 7.8 mg/dL (8.5-10.1); CREATININE 1.5 mg/dL (0.6-1.0); POTASSIUM 3.9 mmol/L (3.5-5.1); TOTAL BILIRUBIN 0.8 mg/dL (<0.1-1.0); TOTAL PROTEIN 6.1 g/dL (6.4-8.2)
[2017-05-02 06:19] LABS: METAMYELOCYTES 1 %; MYELOCYTES 3 %; PLATELET ESTIMATE DECREASED
[2017-05-02 09:10] VITALS: BP 144/73
[2017-05-02 11:45] VITALS: BP 135/83
[2017-05-02 14:06] LABS: COMPLEMENT-C3 50 mg/dL (82-167); COMPLEMENT-C4 < 2 mg/dL (14-44)
[2017-05-02 16:34] VITALS: BP 135/66
[2017-05-02 20:00] VITALS: BP 175/80
[2017-05-03] VITALS (7 sets, daily range): BP systolic 137–158; BP diastolic 68–82
[2017-05-03 06:21] LABS: HEMATOCRIT 25.3 % (37.0-47.0); HEMOGLOBIN 8.8 gm/dL (12.0-15.0); MCH 31.1 pg (26.0-34.0); MCHC 34.8 g/dL (28.0-37.0); MCV 89.3 fL (80.0-100.0); RBC 2.83 mil/uL (4.20-5.00); RDW 15.3 % (10.5-14.5); WBC 19.9 thou/uL (4.0-11.0)
[2017-05-03 06:32] LABS: ALBUMIN 1.9 g/dL (3.4-5.0); CALCIUM 8.2 mg/dL (8.5-10.1); CREATININE 1.6 mg/dL (0.6-1.0); POTASSIUM 3.7 mmol/L (3.5-5.1); TOTAL BILIRUBIN 0.7 mg/dL (<0.1-1.0); TOTAL PROTEIN 6.4 g/dL (6.4-8.2)
[2017-05-03 09:06] LABS: ANA INTERPRETATION Negative (Negative); GLOBULIN TOTAL 3.7 g/dL (2.2-3.9); M-SPIKE Not Observed g/dL (Not Observed)
[2017-05-03 10:52] LABS: T-SPOT.TB Negative
[2017-05-03 15:08] LABS: KAPPA FREE LIGHT CHAINS 83.7 mg/L (3.3-19.4); KAPPA/LAMBDA RATIO 0.94 (0.26-1.65)
[2017-05-04 02:11] LABS: ADENOVIRUS Negative (Negative); INFLUENZA A Negative (Negative); INFLUENZA B Negative (Negative); METAPNEUMOVIRUS Negative (Negative); PARAINFLUENZA 1 Negative (Negative); PARAINFLUENZA 2 Negative (Negative); PARAINFLUENZA 3 Negative (Negative); RHINOVIRUS Negative (Negative); RSV A Negative (Negative); RSV B Negative (Negative)
[2017-05-04 04:00] VITALS: BP 158/82
[2017-05-04 08:30] VITALS: BP 158/62
[2017-05-04 09:00] LABS: HEMATOCRIT 26.3 % (37.0-47.0); HEMOGLOBIN 9.1 gm/dL (12.0-15.0); MCHC 34.7 g/dL (28.0-37.0); MCV 89.4 fL (80.0-100.0); PLATELET COUNT 63 thou/uL (150-400); RBC 2.94 mil/uL (4.20-5.00); RDW 15.4 % (10.5-14.5); WBC 15.9 thou/uL (4.0-11.0)
[2017-05-04 09:26] LABS: ABSOLUTE NEUTROPHILS 12.6 thou/uL (1.4-8.2); METAMYELOCYTES 2 %
[2017-05-04 09:27] LABS: LARGE PLATELETS FEW; POLYCHROMASIA 1+
[2017-05-04 11:31] VITALS: BP 100/49
[2017-05-04 11:49] VITALS: BP 155/70
[2017-05-04 16:00] VITALS: BP 158/68
[2017-05-04 18:10] LABS: ANA INTERPRETATION Negative (())
[2017-05-04 20:00] VITALS: BP 147/67
[2017-05-05] VITALS (10 sets, daily range): BP systolic 119–159; BP diastolic 56–91
[2017-05-05 06:36] LABS: HEMATOCRIT 24.8 % (37.0-47.0); HEMOGLOBIN 8.6 gm/dL (12.0-15.0); MCHC 34.6 g/dL (28.0-37.0); MCV 89.6 fL (80.0-100.0); PLATELET COUNT 80 thou/uL (150-400); RBC 2.77 mil/uL (4.20-5.00); RDW 15.3 % (10.5-14.5); WBC 19.5 thou/uL (4.0-11.0)
[2017-05-05 07:01] LABS: ALBUMIN 2.1 g/dL (3.4-5.0); CALCIUM 8.7 mg/dL (8.5-10.1); CREATININE 1.5 mg/dL (0.6-1.0); PHOSPHORUS 5.3 mg/dL (2.5-4.9); POTASSIUM 3.5 mmol/L (3.5-5.1)
[2017-05-05 07:57] LABS: ABSOLUTE NEUTROPHILS 15.2 thou/uL (1.4-8.2)
[2017-05-05 07:58] LABS: ANISOCYTOSIS 1+; METAMYELOCYTES 2 %; POLYCHROMASIA OCCASIONAL
[2017-05-05 08:46] LABS: APTT 22.6 Seconds (24.5-32.8); INR 1.1; PROTIME 11.5 Seconds (9.3-11.4)
[2017-05-06 05:30] VITALS: BP 123/64
[2017-05-06 08:50] VITALS: BP 112/51
[2017-05-06 10:03] LABS: HEMATOCRIT 23.9 % (37.0-47.0); HEMOGLOBIN 8.1 gm/dL (12.0-15.0); MCH 30.9 pg (26.0-34.0); MCHC 33.7 g/dL (28.0-37.0); MCV 91.5 fL (80.0-100.0); RBC 2.62 mil/uL (4.20-5.00); RDW 15.5 % (10.5-14.5); WBC 14.7 thou/uL (4.0-11.0)
[2017-05-06 10:15] LABS: CALCIUM 8.2 mg/dL (8.5-10.1); CREATININE 1.6 mg/dL (0.6-1.0); POTASSIUM 3.2 mmol/L (3.5-5.1)
[2017-05-06 10:23] LABS: ALBUMIN 1.9 g/dL (3.4-5.0); PHOSPHORUS 3.9 mg/dL (2.5-4.9)
[2017-05-06 10:24] LABS: TROPONIN-I 1.39 ng/mL (<0.06)
[2017-05-06 13:00] VITALS: BP 108/53
[2017-05-06 15:52] LABS: ABSOLUTE NEUTROPHILS 10.4 thou/uL (1.4-8.2); BASOPHILS 0.1 % (0.0-2.0); HEMATOCRIT 21.4 % (37.0-47.0); HEMOGLOBIN 7.4 gm/dL (12.0-15.0); LYMPHOCYTES 6.2 % (24.0-44.0); MCH 31.2 pg (26.0-34.0); MCHC 34.4 g/dL (28.0-37.0); MCV 90.7 fL (80.0-100.0); MONOCYTES 5.6 % (1.0-8.0); POLYS 88.1 % (36.0-66.0); RBC 2.36 mil/uL (4.20-5.00); RDW 15.2 % (10.5-14.5); WBC 11.8 thou/uL (4.0-11.0)
[2017-05-06 15:53] LABS: PLATELET COUNT 77 thou/uL (150-400)
[2017-05-06 17:22] VITALS: BP 154/62
[2017-05-06 19:55] VITALS: BP 118/55
[2017-05-06 23:03] VITALS: BP 131/62
[2017-05-07 04:25] VITALS: BP 140/66
[2017-05-07 05:42] LABS: ABSOLUTE NEUTROPHILS 11.4 thou/uL (1.4-8.2); BASOPHILS 0.1 % (0.0-2.0); EOSINOPHILS 0.1 % (0.0-3.0); HEMATOCRIT 21.6 % (37.0-47.0); HEMOGLOBIN 7.3 gm/dL (12.0-15.0); MCHC 33.7 g/dL (28.0-37.0); MCV 91.9 fL (80.0-100.0); MONOCYTES 8.8 % (1.0-8.0); PLATELET COUNT 68 thou/uL (150-400); RBC 2.35 mil/uL (4.20-5.00); RDW 15.7 % (10.5-14.5); WBC 14.5 thou/uL (4.0-11.0)
[2017-05-07 05:56] LABS: ALBUMIN 1.8 g/dL (3.4-5.0); CALCIUM 7.9 mg/dL (8.5-10.1); CREATININE 1.2 mg/dL (0.6-1.0); PHOSPHORUS 2.9 mg/dL (2.5-4.9)
[2017-05-07 05:58] LABS: POTASSIUM 4.2 mmol/L (3.5-5.1)
[2017-05-07 14:08] LABS: HEMATOCRIT 22.6 % (37.0-47.0); HEMOGLOBIN 7.7 gm/dL (12.0-15.0); MCH 31.2 pg (26.0-34.0); MCHC 34.1 g/dL (28.0-37.0); MCV 91.6 fL (80.0-100.0); RBC 2.47 mil/uL (4.20-5.00); RDW 15.4 % (10.5-14.5); WBC 16.5 thou/uL (4.0-11.0)
[2017-05-07 14:21] LABS: INR 1.1; PROTIME 11.5 Seconds (9.3-11.4)
[2017-05-07 16:59] VITALS: BP 145/65
[2017-05-07 19:40] VITALS: BP 141/65
[2017-05-08 00:06] LABS: HEPATITIS B SURFACE AG Negative (Negative)
[2017-05-08 01:07] LABS: ANTI-EBNA 81.7 U/mL (0.0-17.9); ANTI-VCA/IgM <36.0 U/mL (0.0-35.9); EBV EARLY ANTIGEN 11.8 U/mL (0.0-8.9)
[2017-05-08 04:25] VITALS: BP 127/71
[2017-05-08 07:18] VITALS: BP 125/68
[2017-05-08 11:34] VITALS: BP 128/60
[2017-05-08 15:26] VITALS: BP 114/53
[2017-05-08 19:47] VITALS: BP 131/46
[2017-05-09 03:43] LABS: ABSOLUTE NEUTROPHILS 12.9 thou/uL (1.4-8.2); BASOPHILS 0.1 % (0.0-2.0); EOSINOPHILS 0.1 % (0.0-3.0); HEMATOCRIT 22.7 % (37.0-47.0); HEMOGLOBIN 7.7 gm/dL (12.0-15.0); LYMPHOCYTES 8.6 % (24.0-44.0); MCH 31.2 pg (26.0-34.0); MCHC 33.7 g/dL (28.0-37.0); MCV 92.5 fL (80.0-100.0); MONOCYTES 8.8 % (1.0-8.0); PLATELET COUNT 90 thou/uL (150-400); POLYS 82.4 % (36.0-66.0); RBC 2.46 mil/uL (4.20-5.00); RDW 15.9 % (10.5-14.5); WBC 15.6 thou/uL (4.0-11.0)
[2017-05-09 06:21] VITALS: BP 134/52
[2017-05-09 07:52] VITALS: BP 134/64
[2017-05-09 09:00] LABS: CALCIUM 7.9 mg/dL (8.5-10.1); CREATININE 1.4 mg/dL (0.6-1.0); POTASSIUM 3.9 mmol/L (3.5-5.1)
[2017-05-09 11:22] VITALS: BP 134/63
[2017-05-09 16:41] VITALS: BP 108/52
[2017-05-09 20:00] VITALS: BP 132/67
[2017-05-10 04:21] VITALS: BP 107/56
[2017-05-10 04:44] LABS: HEMATOCRIT 20.9 % (37.0-47.0); HEMOGLOBIN 7.1 gm/dL (12.0-15.0); MCH 31.7 pg (26.0-34.0); MCHC 34.1 g/dL (28.0-37.0); MCV 93.2 fL (80.0-100.0); RBC 2.24 mil/uL (4.20-5.00); RDW 16.7 % (10.5-14.5); WBC 18.2 thou/uL (4.0-11.0)
[2017-05-10 04:56] LABS: ALBUMIN 1.7 g/dL (3.4-5.0); CALCIUM 8.1 mg/dL (8.5-10.1); CREATININE 1.4 mg/dL (0.6-1.0); PHOSPHORUS 3.9 mg/dL (2.5-4.9); POTASSIUM 3.8 mmol/L (3.5-5.1)
[2017-05-10 05:25] LABS: ABSOLUTE NEUTROPHILS 16.2 thou/uL (1.4-8.2); ANISOCYTOSIS 1+; LARGE PLATELETS RARE; METAMYELOCYTES 1 %; PLATELET COUNT 140 thou/uL (150-400)
[2017-05-10 08:04] VITALS: BP 126/59
[2017-05-10 11:21] VITALS: BP 103/50
[2017-05-10 12:29] VITALS: BP 115/51
[2017-05-10 13:18] LABS: HEMATOCRIT 23.6 % (37.0-47.0); HEMOGLOBIN 8.1 gm/dL (12.0-15.0); MCH 31.8 pg (26.0-34.0); MCHC 34.3 g/dL (28.0-37.0); MCV 92.7 fL (80.0-100.0); RBC 2.54 mil/uL (4.20-5.00); WBC 20.5 thou/uL (4.0-11.0)
[2017-05-10 14:09] LABS: SYPHILIS AB Negative (Negative)
[2017-05-10 15:37] VITALS: BP 115/59
[2017-05-10 19:50] VITALS: BP 133/57
[2017-05-10 22:21] LABS: URINE BILIRUBIN NEGATIVE (Negative); URINE BLOOD 3+ (Negative); URINE CLARITY CLEAR; URINE COLOR YELLOW; URINE GLUCOSE-RANDOM* NEGATIVE (Negative); URINE KETONES NEGATIVE (Negative); URINE LEUKOCYTES-REFLEX NEGATIVE (Negative); URINE NITRITE-REFLEX NEGATIVE (Negative); URINE PROTEIN (DIPSTICK) 2+ (Negative); URINE SPECIFIC GRAVITY 1.015 (1.005-1.035); URINE UROBILINOGEN 0.2 E.U./dl (0.2-1.0)
[2017-05-10 22:42] LABS: MUCUS 0-3 Light strn/LPF (None Seen); SQUAMOUS None Seen /LPF (0-3)
[2017-05-10 22:43] LABS: BACTERIA-REFLEX 1-9 Few /HPF (None Seen); CRYSTALS None Seen /LPF (None Seen); URINE RBC 3-10 Few /HPF (0-2); URINE WBC-REFLEX None Seen /HPF (0-5)
[2017-05-11 04:40] VITALS: BP 146/69
[2017-05-11 06:41] LABS: HEMATOCRIT 23.4 % (37.0-47.0); HEMOGLOBIN 7.9 gm/dL (12.0-15.0); MCH 31.6 pg (26.0-34.0); MCHC 33.9 g/dL (28.0-37.0); MCV 93.2 fL (80.0-100.0); PLATELET COUNT 137 thou/uL (150-400); RBC 2.51 mil/uL (4.20-5.00); RDW 16.9 % (10.5-14.5); WBC 23.7 thou/uL (4.0-11.0)
[2017-05-11 07:13] LABS: ANTI-DNA SCREEN <1 IU/mL (0-9); ANTI-RNP 0.3 AI (0.0-0.9)
[2017-05-11 07:35] LABS: ABSOLUTE NEUTROPHILS 19.4 thou/uL (1.4-8.2); MYELOCYTES 1 %
[2017-05-11 07:38] LABS: ANISOCYTOSIS 1+; POLYCHROMASIA OCCASIONAL
[2017-05-11 08:13] VITALS: BP 133/63
[2017-05-11 12:09] VITALS: BP 106/57
[2017-05-11 16:29] VITALS: BP 114/55
[2017-05-11 20:00] VITALS: BP 119/58
[2017-05-12 05:00] VITALS: BP 124/63
[2017-05-12 05:56] LABS: HEMATOCRIT 22.8 % (37.0-47.0); HEMOGLOBIN 7.8 gm/dL (12.0-15.0); MCH 32.4 pg (26.0-34.0); MCHC 34.3 g/dL (28.0-37.0); MCV 94.6 fL (80.0-100.0); PLATELET COUNT 148 thou/uL (150-400); RBC 2.41 mil/uL (4.20-5.00); RDW 17.8 % (10.5-14.5); WBC 27.5 thou/uL (4.0-11.0)
[2017-05-12 06:06] LABS: CALCIUM 8.3 mg/dL (8.5-10.1); CREATININE 1.4 mg/dL (0.6-1.0); MAGNESIUM 2.5 mg/dL (1.8-2.4); POTASSIUM 4.4 mmol/L (3.5-5.1)
[2017-05-12 06:42] LABS: ABSOLUTE NEUTROPHILS 24.5 thou/uL (1.4-8.2); ANISOCYTOSIS 1+; LARGE PLATELETS OCCASIONAL; POLYCHROMASIA 1+
[2017-05-12 08:26] VITALS: BP 133/61
[2017-05-12] MEDS ORDERED: AMBIEN 10 MG TA10 MG PO (12:36)
[2017-05-12] MEDS ORDERED: XANAX 0.5 MG0.5 M1 PO (12:37)
[2017-05-12] MEDS ORDERED: TORSEMIDE20 MG PO (12:38)
[2017-05-12] MEDS ORDERED: CELLCEPT500 MG PO (12:40)
[2017-05-12 13:40] VITALS: BP 133/61
[2017-05-12] MEDS ORDERED: FEOSOL325 M1 PO (14:14)
[2017-05-12] MEDS ORDERED: ALBUTEROL2.5 MG/31 INH (14:14)
== END 2017-05-12 14:45 | disposition home or self-care (01) | DRG 871 ==
LOC: ER 12:29 → EROBS 13:06 → 3W 13:06
PROVIDERS: Emergency Medicine; Hospitalist; Internal Medicine; Internal Medicine Hematology & Oncology; Internal Medicine Nephrology; Internal Medicine Pulmonary Disease; Nurse Practitioner; Specialist
DX: A41.9 Sepsis, unspecified organism (principal); E43 Unspecified severe protein-calorie malnutrition; N17.9 Acute kidney failure, unspecified; D61.818 Other pancytopenia; M31.8 Other specified necrotizing vasculopathies; N05.2 Unspecified nephritic syndrome with diffuse membranous glomerulonephritis; J47.9 Bronchiectasis, uncomplicated; Z88.8 Allergy status to other drugs, medicaments and biological substances; Z88.1 Allergy status to other antibiotic agents; I10 Essential (primary) hypertension; E03.9 Hypothyroidism, unspecified; Z98.42 Cataract extraction status, left eye; Z98.41 Cataract extraction status, right eye; Z90.49 Acquired absence of other specified parts of digestive tract; Z90.710 Acquired absence of both cervix and uterus; Z79.899 Other long term (current) drug therapy; E86.0 Dehydration; M79.7 Fibromyalgia; R91.1 Solitary pulmonary nodule; D69.6 Thrombocytopenia, unspecified; D64.9 Anemia, unspecified; K58.9 Irritable bowel syndrome, unspecified; G89.29 Other chronic pain; M54.9 Dorsalgia, unspecified; D75.9 Disease of blood and blood-forming organs, unspecified; R59.0 Localized enlarged lymph nodes; T17.990A Other foreign object in respiratory tract, part unspecified in causing asphyxiation, initial encounter; X58.XXXA Exposure to other specified factors, initial encounter; Y93.89 Activity, other specified; Y92.89 Other specified places as the place of occurrence of the external cause; Y99.8 Other external cause status; B37.9 Candidiasis, unspecified; Z68.23 Body mass index [BMI] 23.0-23.9, adult
CPT/HCPCS: 10879; 27001

== ENCOUNTER → 2017-06-09 | Outpatient (CLI) | payer OTHER | LOC: CAT 12:41 | DX: J47.9 Bronchiectasis, uncomplicated (principal) ==

== ENCOUNTER 2017-06-28 03:38 | Inpatient (IN) | payer OTHER ==
[~2017-06-28] VITALS: Ht 157.5 cm; Wt 54.9 kg
--- NOTE | ~2017-06-28 | EKG ---
[address] [address] ELECTROCARDIOGRAM REPORT Name: EUGENIO COOMBS Room #: 211-P ADM IN M.R.#: [id number] Admission: 06/28/17 Attend Phys: Darius Covarrubias MD Discharge: Date of : 47 Report #: [id number] THIS REPORT FOR: //name// [facility] Test Date: 2017-07-03 Test Time: 11:42:40 Pat Name: EUGENIO COOMBS Department: Room: 211 P Gender: F Supervisor Nuclear Medicine: BS : 1945 Requested By: Yosi Mathew Order Number: [id number] MD: Abner De La Garza Measurements Intervals [place] Rate: 91 P: 25 MO: 121 QRS: 18 QRSD: 86 T: 69 QT: 343 QTc: 423 Interpretive Statements Sinus rhythm Compared to ECG 05/06/2017 09:27:27 No significant changes Electronically Signed On 07-03-2017 12:21:55 CDT by Abner De La Garza [email or web address] <ELECTRONICALLY SIGNED> By: Abner De La Garza MD 07/03/17 1221 1142 114 Abner De La Garza MD /[place]
--- NOTE | ~2017-06-28 | HC ---
[facility] [place] [address] CONSULTATION Name: EUGENIO COOMBS Room #: 221-P [facility]..#: [id number] Admission: 06/28/17 Attend Phys: Darius Covarrubias MD Discharge: 07/07/17 Date of : 47 Report #: [id number] THIS REPORT FOR: //name// CC: ANAHY physician/PCP Darius Covarrubias DATE OF SERVICE: 06/28/2017 REASON FOR CONSULTATION: Questionable renal vein thrombosis. REASON FOR PRESENTATION: Worsening cough and shortness of breath. HISTORY OF PRESENT ILLNESS: This is a 72-year-old with extensive past medical history and repeated hospitalizations for repeated upper respiratory tract infection symptoms, cough, pneumonitis. 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 Her symptoms started a few days ago with associated fever and chills. She was hospitalized back in April for similar symptoms and was evaluated by Nephrology after being found to have thrombocytopenia, hypoalbuminemia, nephrotic range proteinuria, skin rash, heavy proteinuria, hematuria and thrombocytopenia. 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 I am being asked to evaluate because the initial CT that was done on the patient showed possible left renal vein thrombosis. Of note is that the patient had been nephrotic with severe hypoalbuminemia contributing to possible hypercoagulable condition. PAST MEDICAL HISTORY: 1. Seronegative lupus. 2. Hypertension. 3. Fibromyalgia. 4. Hypothyroidism. 5. Chronic pain syndrome. SOCIAL HISTORY: No known drug or alcohol abuse. She lives with her . REVIEW OF SYSTEMS: GENERAL: Significant for weakness and diffuse myalgias. CARDIOVASCULAR: Significant for shortness of breath. PULMONARY: As per the history of present illness. SKIN: No recent rash, but significant rash in the past. RHEUMATOLOGICAL: As per the history of present illness. PAST SURGICAL HISTORY: Cervical laminectomy, cholecystectomy, hysterectomy, status post kidney biopsy. FAMILY HISTORY: CVA. [facility] [address] [place] [address] CONSULTATION Name: EUGENIO COOMBS Room #: 221-P [facility]#: [id number] Admission: 06/28/17 Attend Phys: Darius Covarrubias MD Discharge: 07/07/17 Date of : 47 Report #: [id number] MEDICATIONS: Losartan, torsemide, CellCept, levothyroxine. PHYSICAL EXAMINATION: GENERAL: She is alert, oriented. VITAL SIGNS: Blood pressure is 122/76, temperature 36.6, pulse rate 89, respiratory rate 18. HEAD AND NECK: No jugular venous distention. CHEST: Decreased air entry bilaterally. CARDIOVASCULAR: Regular, with no rub. ABDOMEN: Soft, nontender. LOWER EXTREMITIES: +2 edema. IMAGIN. Renal ultrasound, reviewed. 2. CT chest, reviewed. ASSESSMENT, IMPRESSION AND PLAN: 1. Seronegative lupus. 2. 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 The patient is at very high risk of having renal vein thrombosis given her nephrotic range proteinuria. She did have some issues with bleeding around the kidney biopsy and we will have to be very careful with her anticoagulation. I will start with evaluating her urine protein to creatinine ratio. We will also send the appropriate hypercoagulable workup. Resume back her CellCept. 4. Resume losartan. 5. Defer the management of her pulmonary issues to the pulmonary team. 6. We will decide about anticoagulation once we review all the above workup. <ELECTRONICALLY SIGNED> By: Jennifer Blanton MD 07/07/17 1926 1850 0055 Jennifer Blanton MD /nt
--- NOTE | ~2017-06-28 | CNG ---
[facility] [place] [address] CYTO-NONGYN REPORT PROCEDURE Name: EUGENIO COOMBS Room #: 211-P ADM IN M.R.#: [id number] Admission: 06/28/17 Date of : 47 Discharge: Report #: [id number] Path Case #: [id number] CYTOPATHOLOGY REPORT COLLECTION DATE: 06/29/2017 RECEIVED DATE: 06/30/2017 SUBMITTING PHYS: Dr. Yann Fang OTHER PHYS: Dr. Darius Covarrubias CLINICAL HISTORY: Pneumonia, Tachycardia SPECIMEN(S) RECEIVED: A.Bronchoalveolar lavage, LLL * * * * * * * * * * * * FINAL DIAGNOSIS: A. Lung, LLL, Bronchoalveolar lavage: - No malignant cells identified. - Bronchial epithelial cells, alveolar macrophages, and squamous cells are present. - Acute and chronic inflammatory cells are present in a background of debris. PATHOLOGIST: Jaquelin Shannon M.D. REPORT ELECTRONICALLY SIGNED BY: Jaquelin Shannon M.D. DATE/TIME: 07/01/2017 13:11 * * * * * * * * * * * * GROSS PATHOLOGY: A. Bronchoalveolar lavage, LLL: The specimen is submitted unfixed, labeled "Eugenio Coombs". Received by the Cytology Department is 12 mL of cloudy colorless fluid. One ThinPrep slide was prepared. (mm 06.30.2017) TRANSPORTATION DEPARTMENT HEAD(S): ZAK Waller(ASCP) INITIAL CPT CODE(S): A; 67576 Professional services performed by [facility] at [facility] [address] , [place] [address] Technical services performed by [facility] at [address] [place] [address]., [address], [place], [place] [address]. [facility] [address] [place] [address], [address] [facility] [address] [place] [address] CYTO-NONGYN REPORT PROCEDURE Name: EUGENIO COOMBS Room #: 211-P ADM IN M.R.#: [id number] Admission: 06/28/17 Date of : 47 Discharge: Report #: [id number] Path Case #: [id number] [place] [address] PHONE: [phone] DIRECTOR: Randy Fitch M.D. * * * END OF REPORT * * *
--- NOTE | ~2017-06-28 | HC ---
[facility] [place] [address] CONSULTATION Name: EUGENIO COOMBS Room #: 211-P ADM IN M.R.#: [id number] Admission: 06/28/17 Attend Phys: Darius Covarrubias MD Discharge: Date of : 47 Report #: [id number] THIS REPORT FOR: //name// CC: ANAHY physician/PCP Darius Covarrubias TYPE OF REPORT: Infectious disease consultation. REASON FOR CONSULTATION: I was asked to evaluate concerning pneumonia in the setting of systemic lupus erythematosus. HISTORY OF PRESENT ILLNESS: The patient was a 72-year old with recent diagnosis of systemic lupus erythematosus. She was hospitalized in April with multisystem disease. She was found to have bronchiectasis with pulmonary infiltrates, mediastinal adenopathy, eosinophilia and cytopenias. She also had renal failure. Biopsy showed evidence of membranous glomerulonephritis. She was felt most consistent with seronegative lupus with hypocomplementemic vasculitis. She is placed on corticosteroids and later added mycophenolate. She has been home with reasonable improvement. Last week, developed acute respiratory compromise with cough and purulent sputum production. She had fever and chills. She was then hospitalized and found to have left-sided infiltrates. Two days ago underwent bronchoscopy. Culture so far growing gram-negative bacilli. Her fever has resolved. She has been on Zosyn. No pleuritic chest pain. No hemoptysis. No rash. Denies any GI or complaints. ALLERGIES: AZITHROMYCIN, LEVAQUIN, CEFTRIAXONE and HYDROCODONE. MEDICATIONS: As noted on her MAY, now including enoxaparin, epoetin, Nexium, Ambien, Coumadin, prednisolone, levothyroxine, losartan, raloxifene, Zosyn, mycophenolate, guaifenesin, albuterol and Tylenol. She was given one dose of fluconazole today. PAST MEDICAL HISTORY: Otherwise unchanged from her previous consultation and that of the above noted points. FAMILY HISTORY: Otherwise unchanged from her previous consultation and that of the above noted points. SOCIAL HISTORY: Otherwise unchanged from her previous consultation and that of the above noted points. REVIEW OF SYSTEMS: Denies any headache, rash, nausea, vomiting or diarrhea. No dysuria or frequency. She has been ambulatory but becomes dyspneic with much activity, on room air. PHYSICAL EXAMINATION: VITAL SIGNS: Afebrile and hemodynamically stable. [address] [address] CONSULTATION Name: EUGENIO COOMBS Room #: 211-P [facility] IN M.R.#: [id number] Admission: 06/28/17 Attend Phys: Darius Covarrubias MD Discharge: Date of : 46 Report #: [id number] GENERAL: Alert and cooperative, in no acute distress. SKIN: Unremarkable. LYMPHATIC: Unremarkable. HEENT: Unremarkable. LUNGS: Crackles heard mostly in the left posterior chest. No consolidation. HEART: Regular. ABDOMEN: Soft and nontender. No hepatosplenomegaly or mass appreciated. EXTREMITIES: Unremarkable. NEUROLOGICAL: Nonfocal. LABORATORY STUDIES: Sodium 135, potassium 3.6, bicarbonate 26, creatinine 1 and glucose 157. Liver function test normal. Albumin of 1.5. CPK 23. LDH 237. INR 1. Hemoglobin 7.6; WBC 12.2 and platelet count 343,000. No differential has been done. Complement levels normal. Urinalysis unremarkable. Blood cultures are negative to date. Bronchoscopy cultures showing gram-negative bacilli, fungus and AFB pending. RADIOLOGICAL DATA: Chest x-ray, increased left effusion with atelectasis and infiltrate, left base. On admission, CT scan of the chest showed left lingular atelectasis, infiltrate with left lower lobe bronchial plug. Mild atelectasis and infiltrate, posterior left lower lobe. Mediastinal adenopathy, increased central upper pole left renal vein thrombosis. 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 She has bronchiectasis and previous pneumonia. Now with suspected gram-negative pneumonia complicating factors. RECOMMENDATIONS: We will plan to continue her current IV antibiotic therapy since it appears she has started to improve. Unlikely atypical organisms considering we are now growing gram-negative bacilli and location of her infiltrate. We will still need to monitor her mediastinal adenopathy. <ELECTRONICALLY SIGNED> By: Tye Kemp MD 07/02/17 1023 05 0228 Tye Kemp MD /nt
--- NOTE | ~2017-06-28 | HC ---
[facility] [place] [address] CONSULTATION Name: EUGENIO COOMBS Room #: 211-P ADM IN M.R.#: [id number] Admission: 06/28/17 Attend Phys: Darius Covarrubias MD Discharge: Date of : 46 Report #: [id number] THIS REPORT FOR: //name// CC: FAM physician/PCP Darius Covarrubias PRIMARY CARE PHYSICIAN: Dr. Raghav Rojas. REFERRAL PHYSICIAN: Dr. Covarrubias. REASON FOR REFERRAL: Cough and pneumonia. HISTORY OF PRESENT ILLNESS: The patient is a 72-year-old white female who was transferred from [facility] Emergency Room for pneumonia. A pulmonary consultation was requested. The patient is known to Dr. Fang. Please refer to his recent pulmonary consultation dated 04/28/2017. In short summary, the patient was recently diagnosed with lupus, eosinophilia, bronchiectasis. She has had history of chronic cough. Recent renal biopsy showed membranous glomerulonephritis. She had been on CellCept and steroids. She has also been followed by Rheumatology. Since discharge from the hospital in April, she has been doing fairly well until over the last 3 days or so, she started developing increasing dyspnea, cough productive of yellowish sputum. She describes it as being similar symptoms when she was hospitalized in April. With worsening symptoms, tachycardic, she presented to [facility] Emergency Room. In the ER, the patient was found to be tachycardic with a heart rate around 130s to 140s. Chest x-ray said to have revealed left-sided infiltrates. There are no current chest x-ray available for my review at this time. Otherwise, denies any recent chest pain, hemoptysis, nausea, vomiting, diarrhea. PAST MEDICAL HISTORY: As mentioned above, recent diagnosis of lupus with membranous glomerulonephritis by biopsy, eosinophilia, bronchiectasis, fibromyalgia, past history of traumatic brain injury, hypertension, hypothyroidism, irritable bowel syndrome, hyperlipidemia. PAST SURGICAL HISTORY: Includes laminectomy, cholecystectomy, hysterectomy. ALLERGIES: ZITHROMAX, LEVAQUIN, ROCEPHIN, reactions are possible hives. HYDROCODONE, causes nausea, vomiting. HOME MEDICATIONS: List reviewed. This includes losartan, Ambien, calcium supplements, torsemide, Nexium, prednisone tapering by her laundry housekeeper, Evista, levothyroxine, CellCept, potassium supplements. [address] [address] CONSULTATION Name: EUGENIO COOMBS Room #: 211-P [facility] IN M.R.#: [id number] Admission: 06/28/17 Attend Phys: Darius Covarrubias MD Discharge: Date of : 47 Report #: [id number] FAMILY HISTORY: Notable for hypertension and longevity. SOCIAL HISTORY: She is a retired nurse. She is . She is a lifetime nonsmoker. Denies alcohol use. REVIEW OF SYSTEMS: As mentioned above, otherwise 10-point system review negative. PHYSICAL EXAMINATION: GENERAL: She is awake, alert, in mild distress. VITAL SIGNS: Temperature is 98 degrees Fahrenheit, pulse is 90, respiratory rate is 18, blood pressure is 120/76 mmHg, saturation 95%. HEENT: Normocephalic, atraumatic. NECK: Supple, without any lymphadenopathy or thyromegaly. CHEST: Breath sounds are fair. Few scattered crackles in the left base. No wheezes. CARDIOVASCULAR: Normal S1, S2. No murmurs or gallop. There is no JVD. There is no carotid bruit. Pulses are 2+/4+ bilaterally. ABDOMEN: Soft, nontender, no organomegaly or masses felt. GENITOURINARY: Deferred. RECTAL: Deferred. EXTREMITIES: There is no edema, cyanosis or clubbing. LABORATORY DATA: High resolution CT chest was performed. This shows left lingular atelectasis, with the left lower lobe mucus plugging, mild atelectasis and infiltrates seen in the posterior left lower lobe, mild increase in mediastinal adenopathy, central pole of the left renal vein thrombosis. Procalcitonin level 0.17. Sodium 133, potassium 3.7, chloride 26, BUN 22, creatinine 0.8. Liver functions are normal. WBC 16,900, hemoglobin 9.3, platelets are normal. Albumin 1.6. IMPRESSION: 1. Progressive productive cough in this 72-year-old white female. CT chest as mentioned above showing atelectasis. Recurrent mucus plugging is suspected. Possible pneumonia is also considered in this immunocompromised patient. 2. Bronchiectasis by history. 3. Recent diagnosis of lupus, on a tapering dose of prednisone as managed by Rheumatology. 4. Membranous glomerulonephritis. 5. Anemia, likely due to chronic disease. 6. Profound protein calorie malnutrition with an albumin of 1.6. 7. Hypertension. 8. Hypothyroidism. RECOMMENDATION: Agree with broad spectrum antibiotics. DVT and GI prophylaxis [facility] [address] [place] [address] CONSULTATION Name: EUGENIO COOMBS Room #: 211-P ADM IN M.R.#: [id number] Admission: 06/28/17 Attend Phys: Darius Covarrubias MD Discharge: Date of : 47 Report #: [id number] will be addressed. With the chest CT findings, the patient likely have recurrent by mucus plugging. The patient will likely need therapeutic bronchoscopy. Findings were discussed with the patient. Dr. Fang will see the patient in followup in the morning. Thank you for the consultation. <ELECTRONICALLY SIGNED> By: Lester Prasad MD 06/29/17 1333 [id number] [id number] Lester Prasad MD /nt
--- NOTE | ~2017-06-28 | H ---
[facility] [place] [address] HISTORY AND PHYSICAL Name: EUGENIO COOMBS Room #: 211-P ADM IN M.R.#: [id number] Admission: 06/28/17 Attend Phys: Darius Covarrubias MD Discharge: Date of : 47 Report #: [id number] THIS REPORT FOR: //name// CC: FAM physician/PCP Darius Covarrubias DATE OF SERVICE: 06/28/2017 ATTENDING PHYSICIAN: Dr. Covarrubias. PRIMARY CARE PHYSICIAN: Dr. Raghav Rojas. CHIEF COMPLAINT: Cough and pneumonia. HISTORY OF PRESENT ILLNESS: The patient is a 72-year-old female who was initially seen here at [facility] in 04/2017 for pneumonia. At that time, she had been having recurrent respiratory infections since January. She has had a cough for many months. She has been on multiple antibiotics as well as steroids, but she was not having any improvement, so she was sent to [place] from the pulmonary office. She did have significant lab changes including acute kidney injury as well as thrombocytopenia, anemia and eosinophilia. She had a CAT scan, which showed mucus plugging and a pulmonary nodule. Therefore, she underwent a bronchoscopy and was found to have significant bronchiectasis and multiple mucus plugs were removed. She was seen by Infectious Disease and treated with IV antibiotics. All of her fungal and blood and sputum cultures remained negative. She was then seen by Nephrology due to significant proteinuria and elevated creatinine. There was concern at one point for vasculitis. Eventually she underwent renal biopsy, which showed secondary membranous glomerulonephritis. Her CAMILLA was negative, but she ended up being seen by Rheumatology who felt like she had lupus. Her ESR and CRP were significantly elevated as well. She was started on CellCept and steroids. She ended up being discharged with plans to follow up with Pulmonary, Rheumatology and Cardiology. Her troponin was elevated at one point, but she was unable to have a catheterization because of thrombocytopenia. She ended up seeing Cardiology a few weeks after discharge and was going to be set up for a stress test, but that has not yet been done because she was feeling too poorly. She is denying any chest pain. She said initially when she was discharged from the hospital, she had been having some improvement in her cough. She reports that in the last 2-3 days, she has had increasing cough and sputum production. Her sputum has been yellow in color. She denies seeing any blood in her sputum. She has had significant increase in shortness of breath. She has not been using any oxygen at home, but has been doing breathing treatments. She does not have any fevers. After her coughing episode, she says her ribs do feel sore. These coughing episodes also have some associated palpitations. At home, her heart rate was up to the 130s, so she went to [facility]. On arrival, her heart rate was in the 140s and she was diagnosed with new left lower lobe pneumonia. [address] [address] HISTORY AND PHYSICAL Name: EUGENIO COOMBS Room #: 211-P [facility] IN .R.#: [id number] Admission: 06/28/17 Attend Phys: Darius Covarrubias MD Discharge: Date of : 47 Report #: [id number] Because of her extensive past medical history, she was sent to [facility] to see her specialist. She is currently resting comfortably in no acute distress. PAST MEDICAL HISTORY: Membranous glomerulonephritis, recent diagnosis of lupus, hypertension, hypothyroidism, fibromyalgia, pulmonary nodule, TBI, hyperlipidemia and irritable bowel syndrome. PAST SURGICAL HISTORY: D and C x 2, breast biopsy, anterior cervical bone removal, cataract, cholecystectomy, hysterectomy, recent renal biopsy and recent bone marrow biopsy. ALLERGIES: ZITHROMAX, LEVAQUIN AND ROCEPHIN, ALL POSSIBLY CAUSE HIVES. SHE ALSO STATES THAT HYDROCODONE CAUSES NAUSEA AND VOMITING. HOME MEDICATIONS: Losartan 25 mg p.o. daily, Ambien 10 mg at bedtime p.r.n., calcium citrate 500 mg p.o. daily, torsemide 20 mg p.o. daily, guaifenesin 1200 mg b.i.d., Nexium 40 mg p.o. daily, prednisolone ____ mg daily, Evista 60 mg at bedtime, ____, levothyroxine 25 mcg daily, CellCept 1000 mg b.i.d. and potassium 20 mEq p.o. daily. SOCIAL HISTORY: The patient is a retired RN, she is and lives at home with her spouse, she is a never smoker, denies any alcohol or drug use. FAMILY HISTORY: Both her parents had hypertension. Her father at the age of 86 and her mother at the age of 90, both from natural causes. REVIEW OF SYSTEMS: The patient states that she has had on and off butterfly rash on her face, but she is currently denying any rashes. With her proteinuria, she has been noted to have low albumin levels for which she has been on a high protein diet. All other 12-point review of systems was reviewed with the patient, otherwise negative unless stated in the HPI. PHYSICAL EXAMINATION: GENERAL: The patient is an alert female in no acute distress. VITAL SIGNS: Temperature is 37.4, heart rate 99, respirations 18, blood pressure 128/80 and oxygen 96% on room air. HEENT: PERRLA. Sclerae is nonicteric. Oral mucosa is pink and moist. NECK: Supple, no JVD noted. CARDIAC: Normal S1 and S2. No murmurs, rubs or gallops. RESPIRATORY: Breath sounds are clear in the upper lobes. She does have some crackles in the right lower lobe. She is diminished in the left lower lobe. Breathing is nonlabored. ABDOMEN: Soft, nontender and nondistended with positive bowel sounds. VASCULAR: 1+ bilateral lower extremity edema. Pedal pulses are 2+. NEUROLOGIC: The patient is alert and oriented x 3. Speech is clear. She is [facility] [address] [place] [address] HISTORY AND PHYSICAL Name: EUGENIO COOMBS Room #: 211-P [facility].#: [id number] Admission: 06/28/17 Attend Phys: Darius Covarrubias MD Discharge: Date of : 46 Report #: [id number] answering questions appropriately and following commands. No focal neuro deficits noted. SKIN: Intact. No rashes or lesions. LABORATORY DATA AND DIAGNOSTICS: WBC 17.3, hemoglobin 10.4 and platelets 329. Sodium 133, potassium 3.7, BUN is 27, creatinine 0.9 and glucose is 152. LFTs are within normal limits. Albumin is 1.8. CK is 28. Chest x-ray showed left lower lobe pneumonia. EKG shows sinus tachycardia. ASSESSMENT AND PLAN: 1. Recurrent pneumonia. The patient does have a recent admission for pneumonia. We will continue with Zosyn. Pulmonary is consulted. Continue breathing treatments and mucolytics. 2. Recent diagnosis of lupus. Rheumatology is consulted. We will continue with current dose of steroids as well as CellCept. 3. Recent acute kidney injury with renal biopsy showing membranous glomerulonephritis. Creatinine today is normal. She does have significant proteinuria with this. Repeat UA. Continue CellCept and steroids. 4. Hypertension. Continue losartan as at home. Blood pressure is stable. 5. Hypothyroidism. Continue Synthroid. 6. Protein calorie malnutrition due to proteinuria. Dietary is consulted. 7. Recent non-ST elevation myocardial infarction. The patient is going to be set up for an outpatient stress test. She is denying any chest pain and troponin is negative. 8. Deep venous thrombosis prophylaxis, place sequential compression devices. We will continue to follow the patient closely throughout the hospitalization and make changes based on clinical status. <ELECTRONICALLY SIGNED> By: IVAN Cheema 06/29/17 0942 [id number] 0933 IVAN Cheema /nt
--- NOTE | ~2017-06-28 | P ---
[facility] [place] [address] PROCEDURE REPORT Name: EUGENIO COOMBS Room #: 211-P [facility] IN M.R.#: [id number] Admission: 06/28/17 Attend Phys: Darius Covarrubias MD Discharge: Date of : 47 Report #: [id number] THIS REPORT FOR: //name// CC: ANAHY physician/PCP Darius Covarrubias DATE OF SERVICE: 06/29/2017 PROCEDURE: Fiberoptic bronchoscopy with bronchioalveolar lavage and microscopic brushings of the left lower lobe. INDICATION: Immunocompromised host with pneumonia, possible endobronchial obstruction. ASA classification class 2. PROCEDURE NOTATION: Discussed risks, benefits of planned procedure with the patient, she desired to proceed. After obtaining informed consent, she was brought to director of cath lab 3 where she was placed on continuous cardiopulmonary monitoring and supplemental oxygen. She was given 4% lidocaine nebulized to anesthetize the upper respiratory tract. Once accomplished, she received conscious sedation. A total of 3 mg Versed and 25 mcg of fentanyl were titrated during the procedure for adequate sedation. Once accomplished, bronchoscope was passed through an oral bite block until the vocal cords were visualized. Lidocaine 1% was instilled in the vocal cords to provide topical anesthesia. Bronchoscope was then passed in the trachea, 1% lidocaine was instilled in the tracheobronchial tree bilaterally for topical anesthesia. Once complete, airways were surveyed. FINDINGS: Mainstem, lobar, segmental and subsegmental bronchi were explored and appeared patent. There were significant purulent secretions coming predominantly from the superior segment of the left lower lobe, but throughout the left lower lobe. No significant thickened mucus plugging noted. Microscopic protected specimen brush was obtained in the superior segment of the left lower lobe and sent for quantitative cultures. Bronchioalveolar lavage was performed in this area at the end of procedure and sent for microbiologic and cytologic tests. The patient tolerated it well. No noted complications. IMPRESSION: Left lower lobe pneumonia in an immunocompromised host, status post bronchoscopy with the above collections. PLAN: Await micro and cytologic tests. By: [id number] Yann Fagn MD /nt
[~2017-06-28 03:38] MED LIST changes: -ACIDOPHILUS1 EAC4 PO; -ALDACTONE25 MG PO; -CALCIUM CITRAT250 MG PO; -CARVEDILOL3.125 MG PO; -COUMADIN 2 MG TA2 M1 PO; -COUMADIN 2.5MG2.5 M1 PO; -COUMADIN 4 MG TA4 M1 PO; -COUMADIN7.5 MG PO; -COZAAR 25 MG TA25 MG PO; -ENOXAPARIN60 MG/0.1 SUBQ; -LEVAQUIN 500 M500 M1 PO; -MEDROL4 MG PO; -MEDROL8 MG PO; -MUCINEX600 MG PO; -POTASSIUM20 PO
[2017-06-28 06:58] VITALS: BP 128/80
[2017-06-28] MEDS ORDERED: MEDROL8 MG PO (08:01)
[2017-06-28] MEDS ORDERED: POTASSIUM20 PO (08:02)
[2017-06-28] MEDS ORDERED: CALCIUM CITRAT250 MG PO (08:03)
[2017-06-28] MEDS ORDERED: COZAAR 25 MG TA25 MG PO (08:04)
[2017-06-28] MEDS ORDERED: SYNTHROID50 MCG PO (08:08)
[2017-06-28 10:17] LABS: HEMATOCRIT 27.2 % (37.0-47.0); HEMOGLOBIN 9.3 gm/dL (12.0-15.0); MCH 31.9 pg (26.0-34.0); MCHC 34.2 g/dL (28.0-37.0); MCV 93.3 fL (80.0-100.0); RBC 2.91 mil/uL (4.20-5.00); WBC 16.8 thou/uL (4.0-11.0)
[2017-06-28 10:25] LABS: ALBUMIN 1.6 g/dL (3.4-5.0); CALCIUM 8.2 mg/dL (8.5-10.1); CREATININE 0.8 mg/dL (0.6-1.0); MAGNESIUM 1.8 mg/dL (1.8-2.4); POTASSIUM 3.7 mmol/L (3.5-5.1); TOTAL BILIRUBIN 0.4 mg/dL (<0.1-1.0)
[2017-06-28 11:05] VITALS: BP 127/72
[2017-06-28 16:27] VITALS: BP 122/76
[2017-06-28 16:33] LABS: URINE BILIRUBIN NEGATIVE (Negative); URINE BLOOD 2+ (Negative); URINE CLARITY CLEAR; URINE COLOR YELLOW; URINE GLUCOSE-RANDOM* NEGATIVE (Negative); URINE KETONES NEGATIVE (Negative); URINE LEUKOCYTES-REFLEX NEGATIVE (Negative); URINE NITRITE-REFLEX NEGATIVE (Negative); URINE PROTEIN (DIPSTICK) 2+ (Negative); URINE SPECIFIC GRAVITY <= 1.005 (1.005-1.035); URINE UROBILINOGEN 0.2 E.U./dl (0.2-1.0)
[2017-06-28 16:39] LABS: PROT/CREAT RATIO 8.1; URINE CREATININE-RANDOM* 18.7 mg/dL; URINE CREATININE-RANDOM* 19.1 mg/dL; URINE PROTEIN-RANDOM* 152.5 mg/dL (<11.9); URINE PROTEIN-RANDOM* 153.9 mg/dL (<11.9)
[2017-06-28 16:46] LABS: SQUAMOUS 0-3 Few /LPF (0-3); URINE RBC 3-10 Few /HPF (0-2); URINE WBC-REFLEX 0-5 Rare /HPF (0-5)
[2017-06-28 16:47] LABS: BACTERIA-REFLEX None Seen /HPF (None Seen); CASTS None Seen /LPF (None Seen); CRYSTALS None Seen /LPF (None Seen)
[2017-06-28 19:07] VITALS: BP 122/65
[2017-06-29 03:27] VITALS: BP 128/69
[2017-06-29 05:27] LABS: ALBUMIN 1.5 g/dL (3.4-5.0); CALCIUM 8.2 mg/dL (8.5-10.1); CREATININE 0.7 mg/dL (0.6-1.0); POTASSIUM 3.4 mmol/L (3.5-5.1); TOTAL BILIRUBIN 0.4 mg/dL (<0.1-1.0); TOTAL PROTEIN 4.9 g/dL (6.4-8.2)
[2017-06-29 05:31] LABS: HEMATOCRIT 25.5 % (37.0-47.0); HEMOGLOBIN 8.7 gm/dL (12.0-15.0); MCHC 34.2 g/dL (28.0-37.0); MCV 93.7 fL (80.0-100.0); RBC 2.72 mil/uL (4.20-5.00); RDW 16.8 % (10.5-14.5); WBC 15.9 thou/uL (4.0-11.0)
[2017-06-29 08:47] VITALS: BP 105/55
[2017-06-29 13:12] LABS: COMPLEMENT-C3 126 mg/dL (82-167); COMPLEMENT-C4 21 mg/dL (14-44)
[2017-06-29 15:18] VITALS: BP 112/68
[2017-06-29 15:57] LABS: HEMATOCRIT 24.1 % (37.0-47.0); MCH 30.8 pg (26.0-34.0); MCHC 33.1 g/dL (28.0-37.0); RBC 2.59 mil/uL (4.20-5.00); RDW 16.9 % (10.5-14.5); WBC 15.5 thou/uL (4.0-11.0)
[2017-06-29 16:19] LABS: APTT 26.5 Seconds (24.5-32.8); PROTIME 10.1 Seconds (9.3-11.4)
[2017-06-29 19:01] VITALS: BP 126/55
[2017-06-30 03:38] VITALS: BP 113/59
[2017-06-30 05:31] LABS: HEMATOCRIT 22.4 % (37.0-47.0); HEMOGLOBIN 7.6 gm/dL (12.0-15.0); MCH 31.4 pg (26.0-34.0); MCHC 33.8 g/dL (28.0-37.0); MCV 93.1 fL (80.0-100.0); RBC 2.41 mil/uL (4.20-5.00); RDW 16.6 % (10.5-14.5); WBC 13.8 thou/uL (4.0-11.0)
[2017-06-30 05:34] LABS: PROTIME 10.5 Seconds (9.3-11.4)
[2017-06-30 05:41] LABS: CALCIUM 8.1 mg/dL (8.5-10.1); CREATININE 0.8 mg/dL (0.6-1.0); POTASSIUM 3.8 mmol/L (3.5-5.1)
[2017-06-30 07:10] VITALS: BP 127/66
[2017-06-30 12:03] VITALS: BP 128/71
[2017-06-30 16:00] VITALS: BP 107/56
[2017-06-30 19:50] VITALS: BP 109/67
[2017-07-01 04:26] LABS: CALCIUM 8.2 mg/dL (8.5-10.1); POTASSIUM 3.6 mmol/L (3.5-5.1)
[2017-07-01 04:29] LABS: % SATURATION 50 % (20-39); IRON 73 ug/dL (50-170); TIBC 145 ug/dL (250-450)
[2017-07-01 04:30] LABS: PROTIME 10.7 Seconds (9.3-11.4)
[2017-07-01 04:45] VITALS: BP 123/69
[2017-07-01 05:33] LABS: HEMATOCRIT 22.8 % (37.0-47.0); HEMOGLOBIN 7.6 gm/dL (12.0-15.0); MCH 30.9 pg (26.0-34.0); MCHC 33.3 g/dL (28.0-37.0); MCV 92.9 fL (80.0-100.0); RBC 2.46 mil/uL (4.20-5.00); RDW 16.3 % (10.5-14.5); WBC 12.2 thou/uL (4.0-11.0)
[2017-07-01 08:00] VITALS: BP 143/69
[2017-07-01 11:22] VITALS: BP 123/71
[2017-07-01 15:40] VITALS: BP 120/68
[2017-07-01 19:50] VITALS: BP 154/81
[2017-07-02 04:50] VITALS: BP 140/77
[2017-07-02 06:36] LABS: HEMATOCRIT 24.8 % (37.0-47.0); HEMOGLOBIN 8.4 gm/dL (12.0-15.0); MCH 31.4 pg (26.0-34.0); MCHC 34.1 g/dL (28.0-37.0); RBC 2.69 mil/uL (4.20-5.00); RDW 16.7 % (10.5-14.5); WBC 12.1 thou/uL (4.0-11.0)
[2017-07-02 06:48] LABS: INR 1.3; PROTIME 13.3 Seconds (9.3-11.4)
[2017-07-02 06:50] LABS: ALBUMIN 1.7 g/dL (3.4-5.0); CALCIUM 8.1 mg/dL (8.5-10.1); CREATININE 0.9 mg/dL (0.6-1.0); PHOSPHORUS 3.3 mg/dL (2.5-4.9); POTASSIUM 3.2 mmol/L (3.5-5.1)
[2017-07-02 07:17] VITALS: BP 136/75
[2017-07-02 11:32] VITALS: BP 165/68
[2017-07-02 15:43] VITALS: BP 104/65
[2017-07-02 19:43] VITALS: BP 133/80
[2017-07-03 04:48] LABS: INR 1.6; PROTIME 16.7 Seconds (9.3-11.4)
[2017-07-03 04:54] VITALS: BP 132/69
[2017-07-03 04:57] LABS: ALBUMIN 1.8 g/dL (3.4-5.0); CALCIUM 8.6 mg/dL (8.5-10.1); CREATININE 0.9 mg/dL (0.6-1.0); PHOSPHORUS 2.4 mg/dL (2.5-4.9)
[2017-07-03 07:50] VITALS: BP 135/78
[2017-07-03 11:40] VITALS: BP 141/73
[2017-07-03 15:40] VITALS: BP 147/78
[2017-07-03 18:36] VITALS: BP 147/78
[2017-07-03 19:18] VITALS: BP 147/75
[2017-07-04 05:20] VITALS: BP 134/75
[2017-07-04 06:24] LABS: CALCIUM 9.1 mg/dL (8.5-10.1); PHOSPHORUS 3.9 mg/dL (2.5-4.9); POTASSIUM 3.5 mmol/L (3.5-5.1)
[2017-07-04 07:20] VITALS: BP 127/67
[2017-07-04 08:22] LABS: PROTIME 19.5 Seconds (9.3-11.4)
[2017-07-04 11:50] VITALS: BP 136/74
[2017-07-04 15:20] VITALS: BP 140/79
[2017-07-04 19:50] VITALS: BP 150/89
[2017-07-05 04:50] VITALS: BP 150/81
[2017-07-05 05:18] LABS: HEMATOCRIT 28.7 % (37.0-47.0); HEMOGLOBIN 10.1 gm/dL (12.0-15.0); MCH 32.7 pg (26.0-34.0); MCHC 35.2 g/dL (28.0-37.0); RBC 3.08 mil/uL (4.20-5.00); RDW 17.1 % (10.5-14.5); WBC 14.3 thou/uL (4.0-11.0)
[2017-07-05 05:33] LABS: CALCIUM 9.3 mg/dL (8.5-10.1); PHOSPHORUS 3.7 mg/dL (2.5-4.9); POTASSIUM 4.1 mmol/L (3.5-5.1)
[2017-07-05 05:35] LABS: INR 1.9; PROTIME 19.4 Seconds (9.3-11.4)
[2017-07-05 07:20] VITALS: BP 148/84
[2017-07-05 11:45] VITALS: BP 118/63
[2017-07-05 15:45] VITALS: BP 148/71
[2017-07-05 19:45] VITALS: BP 130/73
[2017-07-06 06:56] VITALS: BP 127/66
[2017-07-06 07:46] LABS: HEMATOCRIT 30.3 % (37.0-47.0); HEMOGLOBIN 10.4 gm/dL (12.0-15.0); MCH 31.8 pg (26.0-34.0); MCHC 34.4 g/dL (28.0-37.0); MCV 92.3 fL (80.0-100.0); RBC 3.28 mil/uL (4.20-5.00); RDW 17.6 % (10.5-14.5); WBC 14.6 thou/uL (4.0-11.0)
[2017-07-06 07:59] LABS: INR 1.6; PROTIME 16.7 Seconds (9.3-11.4)
[2017-07-06 08:00] LABS: ALBUMIN 2.3 g/dL (3.4-5.0); CALCIUM 9.2 mg/dL (8.5-10.1); CREATININE 0.9 mg/dL (0.6-1.0); PHOSPHORUS 3.5 mg/dL (2.5-4.9); POTASSIUM 3.9 mmol/L (3.5-5.1)
[2017-07-06 20:00] VITALS: BP 134/74
[2017-07-07 07:25] VITALS: BP 130/81
[2017-07-07 07:38] LABS: INR 1.7; PROTIME 17.7 Seconds (9.3-11.4)
[2017-07-07] MEDS ORDERED: LEVAQUIN 500 M500 M1 PO (08:34)
[2017-07-07] MEDS ORDERED: COUMADIN 2.5MG2.5 M1 PO ×2 (08:34→08:43)
[2017-07-07] MEDS ORDERED: ALDACTONE25 MG PO (08:35)
[2017-07-07] MEDS ORDERED: ENOXAPARIN60 MG/0.1 SUBQ (08:39)
[2017-07-07 11:53] VITALS: BP 130/81
== END 2017-07-07 13:44 | disposition home or self-care (01) | DRG 166 ==
LOC: 2N 03:38 → SICU 07-05 20:15 → ENTRNSPT 07-07 13:18 → EDTRNSPTSTS 07-07 13:20 → SICU 07-07 13:44
PROVIDERS: Hospitalist; Internal Medicine; Internal Medicine Nephrology; Internal Medicine Rheumatology; Nurse Practitioner Acute Care
PROC: 0BDB8ZX Extraction of Left Lower Lobe Bronchus, Via Natural or Artificial Opening Endoscopic, Diagnostic (ICD-10-PCS; principal; 2017-06-29)
PROC: 0B9J8ZX Drainage of Left Lower Lung Lobe, Via Natural or Artificial Opening Endoscopic, Diagnostic (ICD-10-PCS; principal; 2017-06-29)
DX: J15.6 Pneumonia due to other Gram-negative bacteria (principal); E43 Unspecified severe protein-calorie malnutrition; I82.3 Embolism and thrombosis of renal vein; M31.8 Other specified necrotizing vasculopathies; N05.2 Unspecified nephritic syndrome with diffuse membranous glomerulonephritis; D63.8 Anemia in other chronic diseases classified elsewhere; M32.9 Systemic lupus erythematosus, unspecified; D75.9 Disease of blood and blood-forming organs, unspecified; D69.6 Thrombocytopenia, unspecified; I10 Essential (primary) hypertension; E03.9 Hypothyroidism, unspecified; E78.5 Hyperlipidemia, unspecified; G47.00 Insomnia, unspecified; M79.7 Fibromyalgia; K58.9 Irritable bowel syndrome, unspecified; Z90.49 Acquired absence of other specified parts of digestive tract; Z87.820 Personal history of traumatic brain injury; I25.2 Old myocardial infarction; Z68.22 Body mass index [BMI] 22.0-22.9, adult; Z90.710 Acquired absence of both cervix and uterus; Z88.1 Allergy status to other antibiotic agents; Z88.8 Allergy status to other drugs, medicaments and biological substances; Z82.49 Family history of ischemic heart disease and other diseases of the circulatory system
CPT/HCPCS: 10081; 15002; 27001

== ENCOUNTER 2017-07-13 20:20 | Inpatient (IN) | payer OTHER ==
--- NOTE | ~2017-07-13 | HC ---
[facility] [place] [address] CONSULTATION Name: EUGENIO COOMBS Room #: 227-P [facility] IN ..#: [id number] Admission: 07/13/17 Attend Phys: Kristofer Caldwell MD Discharge: Date of : 47 Report #: [id number] THIS REPORT FOR: //name// CC: ANAHY physician/PCP Kristofer Caldwell DATE OF SERVICE: 07/14/2017 HISTORY OF PRESENT ILLNESS: The patient is a 72-year-old white female with a prior history of lupus, on corticosteroids and CellCept, nephrotic syndrome, renal vein thrombus, on Coumadin, acute renal insufficiency with renal biopsy showing membranous glomerulonephritis and recent pseudomonas pneumonia. She had been discharged on 07/07/2017 after being treated for recurrent pneumonia. She was given oral Levaquin, underwent bronchoscopy with left lower lobe purulent secretions. She was noted to have protein-calorie malnutrition and has had a recent non-ST elevation myocardial infarction. She was discharged to home. She has had problems with a progressive decline and has not felt well. She ended up being readmitted with hyponatremia, sodium of 121 and worsening weakness. She has had worsening weakness, especially with [id number] and getting off surfaces. Once she is up, she is able to ambulate, but quickly fatigues. She has been admitted now for further evaluation. We are seeing her in rehabilitation medicine consultation. Of importance is a noted fall in the shower per the patient's history earlier today. PAST MEDICAL HISTORY: Includes prior anterior cervical bone removal without fusion, hypertension, hypothyroidism, hyperlipidemia, cataracts, fibromyalgia, carpal tunnel surgery bilaterally, cholecystectomy, hysterectomy, lupus 05/11/2017. She has been on corticosteroid since that time. Kidney biopsy with noted membranous glomerulonephritis, 05/11/2017. Renal vein thrombosis, bronchiectasis, insomnia, irritable bowel syndrome, GERD, thrombocytopenia, non-ST elevation [place]. ALLERGIES: MULTIPLE ALLERGIES ARE NOTED. MEDICATIONS: Please see the full medication listing. She is on methylprednisolone/Medrol p.o. and has been on it since April. SOCIAL HISTORY: No history of tobacco or alcohol abuse. Lives with her , house spouse. Premorbid community ambulator, was independent and ambulatory without gait aids. REVIEW OF SYSTEMS: Did not offer any current complaints of chest pain, shortness of breath or abdominal discomfort. Her main complaint is proximal weakness, upper and lower extremities. She notes she has some premorbid bilateral shoulder degenerative arthritis. [address] [address] CONSULTATION Name: EUGEINO COOMBS Room #: 227-P [facility] IN [facility]#: [id number] Admission: 07/13/17 Attend Phys: Kristofer Caldwell MD Discharge: Date of : 46 Report #: [id number] PHYSICAL EXAMINATION: GENERAL: She is a pleasant, thin 72-year-old white female, in no obvious distress. VITAL SIGNS: Last recorded temperature 97.8, pulse 102, respirations 16, blood pressure 149/74. The patient is alert. HEENT: Appeared to be benign. NEUROLOGIC: Cranial nerves are grossly intact. Facies are symmetric. She has functional range of motion of the upper extremities, but has some discomfort with some degenerative changes of her shoulders with abduction greater than 90 degrees. Proximal strength is probably a grade 4-, distally is more of a grade 4 in her lower extremities. Appears to have some proximal weakness, a grade 4- at her hips with knee extension, ankle dorsiflexion, knee flexion more of a grade 4- to 4. She was able to sit to stand with standby assistance and ambulated short distance, but she tends to fatigue quickly and she did have the fall in the bathroom that she noted earlier today. ASSESSMENT: A 72-year-old white female with the following problem list: 1. Steroid myopathy. 2. Proximal muscle weakness. 3. Hyponatremia. 4. Nephrotic syndrome. 5. Systemic lupus erythematosus. 6. Renal vein thrombosis. 7. 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 8. Protein-calorie malnutrition. 9. Hypertension. 10. Hypothyroidism. PLAN: We will ask physical therapy to reassess as she noted the recent fall. We will ask occupational therapy to evaluate as well. We are assessing the patient for a potential short acute in-hospital inpatient rehabilitation stay. At this point, we will follow along with you. Thank you for asking us to assist in this patient's care. By: [id number] Timmy Montelongo MD /nt
--- NOTE | ~2017-07-13 | HC ---
[facility] [place] [address] CONSULTATION Name: EUGENIO COOMBS Room #: 227-P [facility]..#: [id number] Admission: 07/13/17 Attend Phys: Kristofer Caldwell MD Discharge: 07/15/17 Date of : 46 Report #: [id number] THIS REPORT FOR: //name// CC: FAM physician/PCP Kristofer Caldwell DATE OF SERVICE: 07/14/2017 ATTENDING PHYSICIAN: Kristofer Caldwell M.D. REASON FOR CONSULTATION: Hyponatremia. HISTORY OF PRESENT ILLNESS: The patient is well known to our service with connective tissue disease, secondary membranous nephritis, treated with steroids and CellCept. Illness also included thrombocytopenia and hypocomplementemia both of which have resolved. The patient was hospitalized here with pneumonia, discharged last week, has been also taking diuretics for her nephrotic syndrome, had renal vein thrombosis, treated with Coumadin and the renal vein thrombosis also thought to be secondary to her nephrotic syndrome. She has been on home only a few days. Her serum sodium has dropped from 138 to 122 and her INR is elevated from 1.7 to 5.2 on 10 mg daily of Coumadin. She was admitted to the hospital. PAST MEDICAL HISTORY: Longstanding undifferentiated connective tissue disease, more recently presenting with the above constellation, most consistent with undifferentiated connective tissue disease versus seronegative lupus, on CellCept 1000 mg b.i.d. and tapering steroids and also managed by Dr. Hoang Corral. She has had heavy nephrotic syndrome with her membranous nephropathy, which is biopsy proven. She has renal vein thrombosis as well. SOCIAL HISTORY: No cigarettes or alcohol. PAST SURGICAL HISTORY: Also includes cervical laminectomy, cholecystectomy, hysterectomy, kidney biopsy. FAMILY HISTORY: Positive for CVA. REVIEW OF SYSTEMS: GENERAL: She was doing well the last couple of days, has had cramping and fatigue. SKIN: No skin rashes have been noted. EYES: His vision has been okay. ENT: Hearing okay, swallows okay. No mouth ulcers. ENDOCRINE: No diabetes. Does have some thyroid disease, on replacement. RESPIRATORY: Currently not short of breath at rest. No pleuritic pain. [facility] [address] [place] [address] CONSULTATION Name: EUGENIO COOMBS Room #: 227-P [facility] IN [facility].#: [id number] Admission: 07/13/17 Attend Phys: Kristofer Caldwell MD Discharge: 07/15/17 Date of : 46 Report #: [id number] CARDIAC: No chest pain or angina. She has had the swelling in her legs from the nephrotic syndrome, it has been better. GASTROINTESTINAL: Very poor appetite, not much diarrhea. GENITOURINARY: Good urinary stream without dysuria. NEUROLOGIC: No seizure, syncope or stroke. She does have generalized weakness. PHYSICAL EXAMINATION: GENERAL: Somewhat cushingoid appearing. The patient is in no acute distress, somewhat weak. SKIN: Unremarkable. SKELETAL: Well-developed, well nourished, not obese. HEENT: Extraocular movements are full. Vision intact. No scleral icterus. Hearing intact. NECK: Supple. CHEST: Shows scanty crackles at the left base. HEART: Regular. ABDOMEN: Soft and nontender. EXTREMITIES: No edema. Pulses intact. LABORATORY DATA: Urinalysis, specific gravity 1.010, 2+ protein. Sodium initially 122, up to 126, creatinine 0.7, BUN 23. Hemoglobin 10.2. INR 5.2. ASSESSMENT AND PLAN: 1. Hyponatremia, very poor solid intake, fixed urinary solute output with loop diuretic leading to imbalance of solids and fluid intake leading to hypoosmolar syndrome, now correcting easily as expected. I will stop her saline and give her a couple of salt tablets to try to get her output up a little bit higher. She should do fine. She was hospitalized for 8 days with a serum sodium that ran essentially between 134 and 138 consistently on her diuretics and normal intake and she should be able to attain this rather easily. 2. Elevated INR, possibly a little bit of fresh frozen to get her down some. I would not use vitamin K as that will certainly mess everything up in terms of trying to regulate her. We might consider factor Xa inhibitors, which including Xarelto or Eliquis may be adequate for her renal vein thrombosis until her nephrotic syndrome resolves. 3. Membranous nephropathy with nephrotic syndrome, on CellCept and steroids. 4. History of thrombocytopenia and hypocomplementemia, this is consistent with seronegative lupus or undifferentiated connective tissue disease. <ELECTRONICALLY SIGNED> By: Dakota Norris MD 07/19/17 1022 [id number] Dakota Norris MD /nt
[~2017-07-13 20:20] MED LIST changes: +ALDACTONE25 MG PO; +CALCIUM CITRAT250 MG PO; +COUMADIN 2.5MG2.5 M1 PO; +COZAAR 25 MG TA25 MG PO; +ENOXAPARIN60 MG/0.1 SUBQ; +LEVAQUIN 500 M500 M1 PO; +MEDROL8 MG PO; +POTASSIUM20 PO
[2017-07-13] MEDS ORDERED: MUCINEX600 MG PO (22:57)
[2017-07-13] MEDS ORDERED: MEDROL4 MG PO (22:59)
[2017-07-13] MEDS ORDERED: AMBIEN 5 MG TABL5 M1 PO (23:00)
[2017-07-14] VITALS (8 sets, daily range): BP systolic 112–149; BP diastolic 62–83
[2017-07-14 00:05] LABS: CALCIUM 8.4 mg/dL (8.5-10.1); CREATININE 0.8 mg/dL (0.6-1.0); POTASSIUM 4.1 mmol/L (3.5-5.1)
[2017-07-14] MEDS ORDERED: ALBUTEROL2.5 MG/31 INH (00:13)
[2017-07-14 06:12] LABS: HEMATOCRIT 30.1 % (37.0-47.0); HEMOGLOBIN 10.2 gm/dL (12.0-15.0); MCH 31.3 pg (26.0-34.0); RBC 3.27 mil/uL (4.20-5.00); RDW 18.1 % (10.5-14.5); WBC 14.5 thou/uL (4.0-11.0)
[2017-07-14 06:28] LABS: ALBUMIN 1.8 g/dL (3.4-5.0); CALCIUM 8.1 mg/dL (8.5-10.1); CREATININE 0.6 mg/dL (0.6-1.0); INR 5.2; TOTAL BILIRUBIN 0.3 mg/dL (<0.1-1.0); TOTAL PROTEIN 4.5 g/dL (6.4-8.2)
[2017-07-14 08:25] LABS: CALCIUM 8.1 mg/dL (8.5-10.1); CREATININE 0.7 mg/dL (0.6-1.0); POTASSIUM 3.9 mmol/L (3.5-5.1)
[2017-07-14 09:29] LABS: URINE BILIRUBIN NEGATIVE (Negative); URINE BLOOD 3+ (Negative); URINE CLARITY CLEAR; URINE COLOR YELLOW; URINE GLUCOSE-RANDOM* NEGATIVE (Negative); URINE KETONES NEGATIVE (Negative); URINE LEUKOCYTES NEGATIVE (Negative); URINE NITRITE NEGATIVE (Negative); URINE PROTEIN (DIPSTICK) 2+ (Negative); URINE UROBILINOGEN 0.2 E.U./dl (0.2-1.0)
[2017-07-14 09:32] LABS: URINE CREATININE-RANDOM* 24.2 mg/dL
[2017-07-14 09:38] LABS: BACTERIA 1-9 Few /HPF (None Seen); CASTS None Seen /LPF (None Seen); CRYSTALS None Seen /LPF (None Seen); SQUAMOUS 0-3 Few /LPF (0-3); URINE RBC 0-2 Rare /HPF (0-2); URINE WBC None Seen /HPF (0-5)
[2017-07-15 07:05] VITALS: BP 136/80
[2017-07-15 07:44] LABS: HEMATOCRIT 30.5 % (37.0-47.0); HEMOGLOBIN 10.6 gm/dL (12.0-15.0); MCHC 34.7 g/dL (28.0-37.0); MCV 92.2 fL (80.0-100.0); RBC 3.31 mil/uL (4.20-5.00); RDW 18.3 % (10.5-14.5); WBC 12.9 thou/uL (4.0-11.0)
[2017-07-15 07:56] LABS: ALBUMIN 2.1 g/dL (3.4-5.0); CALCIUM 8.3 mg/dL (8.5-10.1); CREATININE 0.6 mg/dL (0.6-1.0); PHOSPHORUS 2.8 mg/dL (2.5-4.9); POTASSIUM 4.2 mmol/L (3.5-5.1)
[2017-07-15 08:05] LABS: PROTIME 27.9 Seconds (9.3-11.4)
[2017-07-15 08:06] LABS: INR 2.8
[2017-07-15] MEDS ORDERED: DUONEB 2.5-0.5 M3 ML INH (13:03)
[2017-07-15] MEDS ORDERED: COUMADIN7.5 MG PO (13:05)
[2017-07-15] MEDS ORDERED: ACIDOPHILUS1 EAC4 PO (13:05)
== END 2017-07-15 15:47 | DRG 640 ==
LOC: 3W 20:20 → SICU 07-14 17:46 → ENTRNSPT 07-15 15:18 → EDTRNSPTSTS 07-15 15:19 → SICU 07-15 15:47
PROVIDERS: Hospitalist; Internal Medicine Nephrology; Nurse Practitioner Family
DX: E87.1 Hypo-osmolality and hyponatremia (principal); E43 Unspecified severe protein-calorie malnutrition; G72.0 Drug-induced myopathy; I82.3 Embolism and thrombosis of renal vein; N04.8 Nephrotic syndrome with other morphologic changes; I10 Essential (primary) hypertension; E03.9 Hypothyroidism, unspecified; E78.5 Hyperlipidemia, unspecified; M32.9 Systemic lupus erythematosus, unspecified; G47.00 Insomnia, unspecified; K58.9 Irritable bowel syndrome, unspecified; M81.0 Age-related osteoporosis without current pathological fracture; K21.9 Gastro-esophageal reflux disease without esophagitis; T38.0X5A Adverse effect of glucocorticoids and synthetic analogues, initial encounter; Z79.899 Other long term (current) drug therapy; Y92.89 Other specified places as the place of occurrence of the external cause; Z82.3 Family history of stroke; Z90.49 Acquired absence of other specified parts of digestive tract; Z90.710 Acquired absence of both cervix and uterus; Z98.49 Cataract extraction status, unspecified eye; I25.2 Old myocardial infarction
CPT/HCPCS: 10879; 15002

== ENCOUNTER 2017-07-15 12:55 | Inpatient (IN) | payer OTHER ==
[~2017-07-15] VITALS: Ht 157.5 cm; Wt 53.3 kg
--- NOTE | ~2017-07-15 | H ---
[facility] [place] [address] HISTORY AND PHYSICAL Name: EUGENIO COOMBS Room #: 503-P ADM IN M.R.#: [id number] Admission: 07/15/17 Attend Phys: Timmy Montelongo MD Discharge: Date of : 46 Report #: [id number] THIS REPORT FOR: //name// CC: Timmy Montelongo [facility] physician/PCP DATE OF SERVICE: 07/15/2017 HISTORY OF PRESENT ILLNESS: This is a 72-year-old female admitted to [facility] on 07/13/2017 with complaints of progressive decline and generalized weakness. She was found to have significant hyponatremia with sodium of 121. She has prior history of lupus, on corticosteroids and CellCept; nephrotic syndrome; renal vein thrombosis, on chronic Coumadin anticoagulation; acute renal insufficiency with renal biopsy showing membranous glomerulonephritis and a recent Pseudomonas pneumonia for which she was discharged from [facility] on 07/07/2017 for. She was seen in consultation by Nephrology. She was initially given IV fluids and changed to salt tablets. On admission, her INR was also elevated at 5.2. Her INR today has improved to 2.8. Her sodium has improved to 131. She is stabilized, but remained very weak and was transferred to inpatient rehab for further therapies. Today, resident seen in her room. She is doing well with no specific complaints. She has general muscle aches and pains from her lupus and arthritis. Appetite is poor, but improving. Her cough is improving. She does have occasional coughing spell where she then has generalized chest discomfort. Denies nausea, constipation or bladder complaints. She reports having recent significant edema that has improved. PAST MEDICAL HISTORY: Prior anterior cervical bone removal without fusion, hypertension, hypothyroidism, hyperlipidemia, cataracts, fibromyalgia, carpal tunnel surgery bilaterally, cholecystectomy, hysterectomy, lupus diagnosis on 05/11/2017, on corticosteroids since that time. Kidney biopsy with noted membranous glomerulonephritis 05/11/2017, renal vein thrombosis, bronchiectasis, insomnia, irritable bowel syndrome, diarrhea predominant, GERD, thrombocytopenia, non-ST elevated myocardial infarction. ALLERGIES: HYDROCODONE, CEPHALEXIN, ERYTHROMYCIN BASE, AZITHROMYCIN, CEFTRIAXONE AND LEVOFLOXACIN. MEDICATIONS: Please see EMR for complete list. HABITS: She denies tobacco or illicit drug abuse. No alcohol use. SOCIAL HISTORY: She is a full code. She lives at home with her . She has 2 entry steps, zero steps inside the home. She utilized no assistive devices prior, premorbid, community ambulator and independent with all cares. [address] [address] HISTORY AND PHYSICAL Name: EUGENIO COOMBS Room #: 503-P [facility] IN ..#: [id number] Admission: 07/15/17 Attend Phys: Timmy Montelongo MD Discharge: Date of : 46 Report #: [id number] REVIEW OF SYSTEMS: Remainder of her 12-point review of systems is negative except as listed in HPI. PHYSICAL EXAMINATION: VITAL SIGNS: Blood pressure 136/80, respirations 19, temperature 97.5, pulse of 86. She is 98% oxygen on room air. GENERAL: She is awake, alert and oriented x 4. She is in no acute distress. HEENT: Normocephalic. EOMs intact. CHEST: Clear to auscultation bilaterally, no crackles, no wheeze. CARDIAC: Regular rate and rhythm. S1, S2. ABDOMEN: Bowel sounds positive, soft, nontender, nondistended. SKIN: She has a right AC peripheral IV line, otherwise warm, dry and intact. NEUROLOGIC: Equal sensation bilaterally. EXTREMITIES: No calf swelling or tenderness. Full range of motion in bilateral upper and lower extremities. She does have tremor, bilateral hands. Bilateral lower extremities strength is approximately 3+/5. She was standby assist, ambulated 150 feet with no assistive device, standby assist for sit to stand. She was supervision for lower extremity dressing. LABORATORY DATA: INR 2.8, sodium 131, potassium 4.2, BUN 23, creatinine 0.6. WBCs 12.9, hemoglobin 10.6, hematocrit 30.5, platelets 386. Chest x-ray on 07/14/2017, findings suggestive of some residual pneumonic infiltrate in the left lateral lower lobe. Lungs are otherwise clear. Urinalysis negative for UTI. TSH 2.84. ASSESSMENT AND PLAN: 1. Steroid-induced myopathy. 2. Proximal muscle weakness. 3. Hyponatremia. 4. Nephrotic syndrome. 5. Systemic lupus erythematosus. 6. Renal vein thrombosis, on chronic anticoagulation. 7. 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 8. Protein calorie malnutrition. 9. Hypertension. 10. Hypothyroidism. PLAN: The patient has been admitted to inpatient rehabilitation for physical and occupational therapies with a goal to return back to her home. We will continue to make rehab recommendations as needed. By: [id number] Tran Quinn, IVAN /nt
--- NOTE | ~2017-07-15 | HC ---
[facility] [place] [address] CONSULTATION Name: EUGENIO COOMBS Room #: 501-A [facility] IN [facility].#: [id number] Admission: 07/15/17 Attend Phys: Timmy Montelongo MD Discharge: Date of : 46 Report #: [id number] THIS REPORT FOR: //name// CC: Timmy Montelongo FAM physician/PCP DATE OF SERVICE: 07/17/2017 NEUROBEHAVIORAL STATUS EXAM: ATTENDING PHYSICIAN: Timmy Montelongo MD. [employer] LENS TECHNICIAN: Juan Pike, PhD. CLINICAL PRESENTATION: The patient is a 72-year-old female admitted to the rehabilitation unit for a comprehensive inpatient rehabilitation program to assist with activities of daily living and mental status secondary to deficits from steroid-induced myopathy. The patient has had a prolonged hospitalization that initially started with pneumonia, and acute respiratory failure. Her diagnoses on admission to rehab are reported to include steroid-induced myopathy, proximal muscle weakness, hyponatremia, nephrotic syndrome, systemic lupus erythematosus, renal vein thrombosis, recent kidney failure, protein-calorie malnutrition, hypertension and hypothyroidism. A complete description of her medical condition and history along with medications can be found in her medical records. Neuropsychological consultation was requested to provide assistance in the assessment of cognitive and emotional status and to provide recommendations and services. Prior to this most recent medical condition, she was living independently at home with her . She is a retired RN. She has 2 children. Her family is described as very supportive. TECHNIQUES UTILIZED: Clinical interview, review of medical records, staff consultation and behavioral observation, mini mental status exam 2 standard version, clock drawing and verbal fluency assessment. EXAMINATION FINDINGS: The patient was alert and cooperative with the assessment. There is no evidence of aphasia. Her thoughts are logical and goal oriented. There is no evidence of thought disorder. She does not report auditory or visual hallucinations. She accurately described events surrounding her admission. The patient acknowledges concern in regard to her recovery. There appears to have been initial an adjustment reactions with variabilty in mood, but she reports coming to terms with her medical condition and recognizes it is something she will live with. [facility] [address] [place] [address] CONSULTATION Name: EUGENIO COOMBS Room #: 501-A [facility] IN .R.#: [id number] Admission: 07/15/17 Attend Phys: Timmy Montelongo MD Discharge: Date of : 46 Report #: [id number] Her reports describes her as having more difficulty with cognition than she reports. He describes memory problems that include forgetting conversations and repeating questions. He also reports a mild depression that he observes in her. Performance on the MMSE 2 brief version is within normal limits with a raw score of 15 of 16. She was 2 of 3 for immediate recall of 3 items after a brief time delay and distraction. Her performance on the MMSE 2 standard version is within normal limits with a raw score of 29 of 30. Letter fluency is in the mild range of impairment with a T score of 32 and percentile rank of 4. Category fluency is within normal limits with animal fluency at the 64th percentile with a T score of 64. Deficits in letter fluency often suggest executive dysfunction. Decreased thought organization and difficulty with planning and initiating problem solving strategies may be a problem. DIAGNOSTIC IMPRESSION: Mild neurocognitive disorder, due to medical etiology, without behavior disorder. Unspecified anxiety disorder. RECOMMENDATIONS: The patient may benefit from a more thorough neuropsych assessment upon discharge to clarify neurocognitive functioning. She is having increased difficulty with cognition that her observes suggests posssible problems with higher level planning and problem solving. Her mood appears mildly anxious. She does not report a prior history of treatment for depression or anxiety. Reassurance and use of breathing techniques for relaxation will assist in the the management of anxiety. Inconsistent sleep is also reported. The use of a sleep aid may be beneficial during her hospitalization. Thank you very much for allowing me to provide the consultation on this patient. <ELECTRONICALLY SIGNED> By: Juan Pike, PhD 07/18/17 1418 [id number] Juan Pike, PhD /nt
--- NOTE | ~2017-07-15 | H ---
[facility] [place] [address] HISTORY AND PHYSICAL Name: EUGENIO COOMBS Room #: 501-A [facility] IN .R.#: [id number] Admission: 07/15/17 Attend Phys: Timmy Montelongo MD Discharge: 07/23/17 Date of : 46 Report #: [id number] THIS REPORT FOR: //name// CC: Timmy Montelongo [facility] physician/PCP DATE OF SERVICE: 07/15/2017 HISTORY AND PHYSICAL ADDENDUM/POSTADMISSION PHYSICIAN EVALUATION HISTORY OF PRESENT ILLNESS: The patient has been admitted for acute in-hospital inpatient rehabilitation. Please see my prior consultation. See nurse practitioner, Tran Quinn's, history and physical. Agree with the documentation as noted. The patient has steroid-induced myopathy with proximal upper and lower extremity weakness. She has premorbid lupus and was originally admitted with significant hyponatremia. She has nephrotic syndrome. She has had recent renal failure. She was recently discharged and then readmitted to the hospital acutely with worsening muscle weakness and with hyponatremia. She has now been admitted for acute in-hospital inpatient rehabilitation. On exam, she demonstrates the proximal weakness of both upper and lower extremities, which is a grade 4-. Distally, she is more of a grade 4. She has been needing assistance with basic transfers and functional mobility issues. For the full examination report, please see the noted documentation. Agree with the assessment and plan as noted. From a postadmission physician evaluation perspective, there are no relevant changes since the preadmission screening. Please see the above review of prior and current medical and functional conditions and comorbidities. Please see the patient's previous and current functional status. As far as risk of complications, the patient has multiple medical comorbidities as noted above. The initial plan of care involves the interdisciplinary acute inpatient rehabilitation program with goal of maximizing the patient's functional independence, so that she can hopefully return back to her prior living situation. Measurable functional goals would be for the patient to become modified, independent with transfers, mobility and ADLs that she can hopefully return back to her prior living situation. Prognosis is reasonably good with estimated length of stay, probably at least 7-10 days. Potential barriers would include her multiple medical comorbidities and decreased functional status. <ELECTRONICALLY SIGNED> By: Timmy Montelongo MD 07/26/17 1221 1155 1405 Timmy Montelongo MD /[facility]
--- NOTE | ~2017-07-15 | PLAN ---
[facility] [place] [address] REHAB UNIT PLAN OF CARE Name: EUGENIO COOMBS Room #: 501-A [facility] IN ..#: [id number] Admission: 07/15/17 Attend Phys: Timmy Montelongo MD Discharge: 07/23/17 Date of : 47 Report #: [id number] THIS REPORT FOR: //name// CC: Timmy Montelongo [facility] physician/PCP DATE OF SERVICE: 07/16/2017 PROGRESS NOTE/OVERALL PLAN OF CARE The patient was seen back today in followup. She was in no distress. Last recorded temp was 36.6, pulse 99, respirations 18, blood pressure 137/67. No focal calf swelling. She is working in therapies with transfers at a standby assistance. She does need standby assistance for short distance ambulation. Lower body dressing is supervision. ASSESSMENT: 1. Steroid-induced myopathy. 2. Proximal muscle weakness. 3. Hyponatremia. 4. Nephrotic syndrome. 5. Systemic lupus erythematosus. 6. Renal vein thrombosis, on chronic anticoagulation. 7. 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 8. Protein calorie malnutrition. 9. Hypertension. PLAN: The overall plan of care is based on the preadmission screen, post-admission physician evaluation and information garnered from therapy assessments. 1. Estimated length of stay is probably 7-10 days, pending progress. 2. Medical prognosis is reasonably good. 3. Anticipated interventions includes the interdisciplinary acute inpatient rehabilitation program with PT and OT working with her, rehab nursing assisting regarding medication management, skin care prophylaxis, bowel and bladder issues and nursing education. 4. Anticipated functional outcomes would be for the patient to become modified, independent with transfers, mobility, and ADLs so that she can hopefully return back to her prior living situation. 5. Discharge destination would be back to the home setting, where she lives at home with her . 6. Expected therapy by discipline includes PT and OT 1 to 1/2 hours per day [address] [address] REHAB UNIT PLAN OF CARE Name: EUGENIO COOMBS Room #: 501-A [facility]#: [id number] Admission: 07/15/17 Attend Phys: Timmy Montelongo MD Discharge: 07/23/17 Date of : 46 Report #: [id number] each five days a week throughout the duration of the acute inpatient rehabilitation stay. <ELECTRONICALLY SIGNED> By: Timmy Montelongo MD 07/26/17 1221 1158 [id number] Timmy Montelongo MD /[facility]
[~2017-07-15 12:55] MED LIST changes: +MEDROL4 MG PO; +MUCINEX600 MG PO
[2017-07-15] MEDS ORDERED: DUONEB 2.5-0.5 M3 ML INH (13:03)
[2017-07-15] MEDS ORDERED: COUMADIN7.5 MG PO (13:05)
[2017-07-15] MEDS ORDERED: ACIDOPHILUS1 EAC4 PO (13:05)
[2017-07-15 22:04] VITALS: BP 123/64
[2017-07-16 06:02] LABS: HEMATOCRIT 30.1 % (37.0-47.0); HEMOGLOBIN 10.2 gm/dL (12.0-15.0); MCH 31.6 pg (26.0-34.0); MCV 92.7 fL (80.0-100.0); RBC 3.25 mil/uL (4.20-5.00); RDW 18.2 % (10.5-14.5); WBC 13.2 thou/uL (4.0-11.0)
[2017-07-16 06:13] LABS: CALCIUM 8.4 mg/dL (8.5-10.1); CREATININE 0.7 mg/dL (0.6-1.0); INR 1.7; PHOSPHORUS 3.4 mg/dL (2.5-4.9); POTASSIUM 4.4 mmol/L (3.5-5.1); PROTIME 17.4 Seconds (9.3-11.4)
[2017-07-16 08:00] VITALS: BP 137/67
[2017-07-16 19:45] VITALS: BP 142/81
[2017-07-17 03:51] LABS: HEMATOCRIT 28.7 % (37.0-47.0); HEMOGLOBIN 9.6 gm/dL (12.0-15.0); MCH 31.2 pg (26.0-34.0); MCHC 33.5 g/dL (28.0-37.0); MCV 93.3 fL (80.0-100.0); RBC 3.07 mil/uL (4.20-5.00); RDW 18.3 % (10.5-14.5); WBC 11.7 thou/uL (4.0-11.0)
[2017-07-17 04:02] LABS: INR 2.1; PROTIME 21.6 Seconds (9.3-11.4)
[2017-07-17 04:10] LABS: CALCIUM 8.8 mg/dL (8.5-10.1); CREATININE 0.7 mg/dL (0.6-1.0)
[2017-07-17 07:22] VITALS: BP 145/94
[2017-07-17 19:15] VITALS: BP 169/92
[2017-07-18 06:06] LABS: HEMATOCRIT 29.8 % (37.0-47.0); MCH 31.1 pg (26.0-34.0); MCHC 33.5 g/dL (28.0-37.0); MCV 92.7 fL (80.0-100.0); RBC 3.21 mil/uL (4.20-5.00); RDW 17.8 % (10.5-14.5); WBC 13.5 thou/uL (4.0-11.0)
[2017-07-18 06:19] LABS: ALBUMIN 2.1 g/dL (3.4-5.0); CALCIUM 9.2 mg/dL (8.5-10.1); CREATININE 0.8 mg/dL (0.6-1.0); POTASSIUM 4.6 mmol/L (3.5-5.1); TOTAL BILIRUBIN 0.3 mg/dL (<0.1-1.0); TOTAL PROTEIN 4.8 g/dL (6.4-8.2)
[2017-07-18 06:26] LABS: PROTIME 33.2 Seconds (9.3-11.4)
[2017-07-18 06:27] LABS: INR 3.3
[2017-07-18 09:21] VITALS: BP 149/85
[2017-07-18 20:00] VITALS: BP 163/89
[2017-07-19 06:06] LABS: PROTIME 39.6 Seconds (9.3-11.4)
[2017-07-19 06:17] LABS: ALBUMIN 2.1 g/dL (3.4-5.0); CREATININE 0.7 mg/dL (0.6-1.0); PHOSPHORUS 4.7 mg/dL (2.5-4.9); POTASSIUM 4.7 mmol/L (3.5-5.1)
[2017-07-19 07:50] VITALS: BP 136/82
[2017-07-19 16:34] VITALS: BP 156/85
[2017-07-19 19:10] VITALS: BP 139/91
[2017-07-20 04:35] LABS: INR 3.9; PROTIME 39.3 Seconds (9.3-11.4)
[2017-07-20 07:50] VITALS: BP 139/75
[2017-07-20 19:05] VITALS: BP 146/86
[2017-07-21 04:33] LABS: HEMATOCRIT 31.5 % (37.0-47.0); HEMOGLOBIN 10.6 gm/dL (12.0-15.0); MCH 30.9 pg (26.0-34.0); MCHC 33.5 g/dL (28.0-37.0); RBC 3.42 mil/uL (4.20-5.00); RDW 17.7 % (10.5-14.5); WBC 15.3 thou/uL (4.0-11.0)
[2017-07-21 04:36] LABS: ALBUMIN 2.1 g/dL (3.4-5.0); CALCIUM 8.7 mg/dL (8.5-10.1); CREATININE 0.8 mg/dL (0.6-1.0); PHOSPHORUS 3.6 mg/dL (2.5-4.9); POTASSIUM 3.8 mmol/L (3.5-5.1)
[2017-07-21 04:54] LABS: INR 2.6; PROTIME 26.3 Seconds (9.3-11.4)
[2017-07-21 07:35] VITALS: BP 146/79
[2017-07-21 19:15] VITALS: BP 143/71
[2017-07-22 04:02] LABS: INR 2.1; PROTIME 21.4 Seconds (9.3-11.4)
[2017-07-22 07:37] VITALS: BP 131/86
[2017-07-22] MEDS ORDERED: CARVEDILOL3.125 MG PO (10:03)
[2017-07-22] MEDS ORDERED: COUMADIN 4 MG TA4 M1 PO (10:03)
[2017-07-22] MEDS ORDERED: ALDACTONE25 MG PO (10:03)
[2017-07-22 20:27] VITALS: BP 132/76
[2017-07-23 06:12] LABS: INR 2.6; PROTIME 26.4 Seconds (9.3-11.4)
[2017-07-23 06:14] LABS: ALBUMIN 2.1 g/dL (3.4-5.0); CALCIUM 8.3 mg/dL (8.5-10.1); CREATININE 0.7 mg/dL (0.6-1.0); PHOSPHORUS 2.8 mg/dL (2.5-4.9); POTASSIUM 3.8 mmol/L (3.5-5.1)
[2017-07-23 07:30] VITALS: BP 139/72
[2017-07-23 10:08] VITALS: BP 132/76
[2017-07-23] MEDS ORDERED: CARVEDILOL3.125 MG PO (11:22)
[2017-07-23] MEDS ORDERED: COUMADIN 4 MG TA4 M1 PO (11:47)
[2017-07-23] MEDS ORDERED: COUMADIN 2 MG TA2 M1 PO (11:53)
== END 2017-07-23 12:13 | disposition home or self-care (01) | DRG 91 ==
LOC: ENTRNSPT 07-23 12:01 → EDTRNSPTSTS 07-23 12:05
PROVIDERS: Hospitalist; Internal Medicine Nephrology; Nurse Practitioner; Nurse Practitioner Family
DX: G72.0 Drug-induced myopathy (principal); E43 Unspecified severe protein-calorie malnutrition; J18.1 Lobar pneumonia, unspecified organism; E87.1 Hypo-osmolality and hyponatremia; N17.9 Acute kidney failure, unspecified; I82.3 Embolism and thrombosis of renal vein; N02.2 Recurrent and persistent hematuria with diffuse membranous glomerulonephritis; I10 Essential (primary) hypertension; E03.9 Hypothyroidism, unspecified; E78.5 Hyperlipidemia, unspecified; M79.7 Fibromyalgia; K58.9 Irritable bowel syndrome, unspecified; K21.9 Gastro-esophageal reflux disease without esophagitis; M32.9 Systemic lupus erythematosus, unspecified; N05.9 Unspecified nephritic syndrome with unspecified morphologic changes; R53.81 Other malaise; D72.829 Elevated white blood cell count, unspecified; R80.9 Proteinuria, unspecified; G89.29 Other chronic pain; G31.84 Mild cognitive impairment of uncertain or unknown etiology; F41.9 Anxiety disorder, unspecified; R00.0 Tachycardia, unspecified; M54.5 Low back pain; M54.2 Cervicalgia; Z79.01 Long term (current) use of anticoagulants; Z90.49 Acquired absence of other specified parts of digestive tract; Z90.710 Acquired absence of both cervix and uterus; Z98.42 Cataract extraction status, left eye; Z98.41 Cataract extraction status, right eye; I25.2 Old myocardial infarction; Z88.6 Allergy status to analgesic agent; Z88.1 Allergy status to other antibiotic agents; Z88.8 Allergy status to other drugs, medicaments and biological substances; Z68.21 Body mass index [BMI] 21.0-21.9, adult; T38.0X5A Adverse effect of glucocorticoids and synthetic analogues, initial encounter; Y92.89 Other specified places as the place of occurrence of the external cause
CPT/HCPCS: 10112

== ENCOUNTER → 2017-08-12 | Outpatient (CLI) | payer OTHER ==
[~2017-08-12] MED LIST changes: +ACIDOPHILUS1 EAC4 PO; +CARVEDILOL3.125 MG PO; +COUMADIN 2 MG TA2 M1 PO; +COUMADIN 4 MG TA4 M1 PO; +COUMADIN7.5 MG PO
== END ==
LOC: CAT 06:19
DX: J98.11 Atelectasis (principal); I25.10 Atherosclerotic heart disease of native coronary artery without angina pectoris

== ENCOUNTER → 2017-08-25 | Outpatient (CLI) | payer OTHER ==
--- NOTE | ~2017-08-25 | PATH ---
[facility] [address] [place] [address] PATHOLOGY RPT PROCEDURE Name: EUGENIO COOMBS Room #: REG [facility]#: [id number] Admission: 08/25/17 Date of : 47 Discharge: Report #: [id number] Path Case #: [id number] Note [facility] Accession Number: [id number] TESTS RESULT FLAG UNITS REF RANGE LAB Clinician Provided Cytology Information No. of containers..01 Other (Miscellaneous) Source: [place] DIAGNOSIS: 02 [place] NEGATIVE FOR MALIGNANT CELLS. NORMAL BRONCHIAL CELLS AND MACROPHAGES ARE PRESENT. Signed out by: 02 Jaquelin Shannon MD, Pathologist NPI- [id number] Performed by: 03 Caitie Somers, Point Of Care Specialist ([facility]) Gross description: 01 15 ML, WHITE, CLOUDY /LCS FLAG LEGEND: L-Low Normal,H-High Normal,LL-Alert Low,HH-Alert High <-Panic Low,>-Panic High,A-Abnormal,AA-Critical Abnormal Performed at: [address] [place] [address] Tim Zuñiga MD, [address] [address] Jaquelin Shannon MD, [address] [address] Randy Fitch MD, Performed at: [address], [place], [place] [id number] MD Tim Zuñiga MD Phone: [phone]
--- NOTE | ~2017-08-25 | P ---
[facility] [place] [address] PROCEDURE REPORT Name: EUGENIO COOMBS Room #: REG [facility]#: [id number] Admission: 08/25/17 Attend Phys: Yann Fang MD Discharge: Date of : 47 Report #: [id number] THIS REPORT FOR: //name// CC: Tye Fang Physician staff ____ [facility] DATE OF SERVICE: 08/25/2017 PROCEDURE: Fiberoptic bronchoscopy with bronchoalveolar lavage and microscopic protected specimen brush of the superior segment of the left lower lobe. INDICATION: Persistent infiltrates, ASA classification class 2. PROCEDURE NOTATION: After discussing risks and benefits of the planned procedure with the patient, she desired to proceed. After obtaining informed consent, she was brought to manager labor delivery 3 where she was placed on continuous cardiopulmonary monitoring and supplemental oxygen, given 2% lidocaine nebulized to anesthetize the upper respiratory tract. Once accomplished, she received conscious sedation, a total 4 mg of Versed and 25 mcg of fentanyl were titrated during the procedure to provide adequate sedation. Once accomplished, bronchoscope was passed through an oral bite block until the vocal cords were visualized. Lidocaine 1% was instilled in the vocal cords to provide topical anesthesia. Bronchoscope was then passed into the trachea, 1% lidocaine was instilled in the tracheobronchial tree to provide topical anesthesia. Once complete, airways were surveyed. FINDINGS: Mainstem, lobar, segmental and subsegmental bronchi bilaterally were explored. No significant anatomic variation or endobronchial disease other than the following findings: The patient had mucopurulent secretions emanating predominantly from the superior segment of the left lower lobe. A protected specimen brush was obtained in this area and sent for quantitative cultures. A bronchial lavage was then performed in this area and sent for microbiologic and cytologic tests. Request ____ for nocardia. The patient tolerated well with no noted complications" By: [id number] Yann Fang MD /nt
== END | disposition home or self-care (01) ==
LOC: CATH 12:04
DX: J98.8 Other specified respiratory disorders (principal); Z88.8 Allergy status to other drugs, medicaments and biological substances; Z79.899 Other long term (current) drug therapy; Z79.01 Long term (current) use of anticoagulants

== ENCOUNTER → 2017-10-18 | Outpatient (CLI) | payer OTHER | LOC: RAD 11:23 | DX: J98.11 Atelectasis (principal); J44.9 Chronic obstructive pulmonary disease, unspecified; I10 Essential (primary) hypertension; E03.9 Hypothyroidism, unspecified ==